=== PATIENT | male | born 1950 | race Caucasian/White ===

== ENCOUNTER 2016-12-21 16:28 | Emergency (ER) | payer OTHER ==
[~2016-12-21] VITALS: Ht 182.9 cm; Wt 167.0 kg
[~2016-12-21 16:28] MED LIST: AMLO5 PO; ATOR80TA PO; Hydrocodone/Acetaminophen PO; METF500 PO; METO50TA PO; PROZ20CA11 PO; TAMS0.4C67 PO
[2016-12-21 16:37] VITALS: BP 151/82; PULSE 101; RESP 16; TEMP 98.8; O2SAT 95
[2016-12-21] MEDS ORDERED: METO-426 PO (17:20)
[2016-12-21] MEDS ORDERED: TAMS5CAP PO (17:20)
[2016-12-21] MEDS ORDERED: FLUO1TAB3 PO (17:20)
[2016-12-21] MEDS ORDERED: ATOR1TAB18 PO (17:20)
[2016-12-21] MEDS ORDERED: ASPI81CH CHEW (17:20)
[2016-12-21] MEDS ORDERED: AMLO10TA2 PO (17:20)
[2016-12-21] MEDS ORDERED: OXYC1CAP PO (17:21)
[2016-12-21] MEDS ORDERED: CEPH-459 PO (17:36)
[2016-12-21] MEDS ORDERED: BACT800T5 PO (17:36)
--- NOTE | 2016-12-21 17:37 | PD ---
HPI Chief Complaint: Skin Problem Time Seen by Provider: 17:12 Travel History International Travel<30 days: No Contact w/Intl Traveler<30days: No Traveled to known affect area: No History of Present Illness HPI 66-year-old male presents to the emergency department for evaluation of a possible abscess on his right abdomen. He reports the area became tender and red 2-3 days ago. He reports the pain as mild mild, nonradiating, only bothering him when the area is touched. He reports previous abscesses in the past. He denies fevers, chills, nausea, vomiting, abdominal pain. PFSH Past Medical History Narrative Medical Past medical history significant for diabetes, hypertension, dyslipidemia. Arthritis: Yes Asthma: Yes Depression: Yes ("A LITTLE BIT" TAKES PROZAC) Heart Rhythm Problems: Yes (pt states, "irregular rhythm, and fast pulse rate") High Cholesterol: Yes COPD: Yes Diabetes: Yes (diet controlled) Endocrine: Yes Hepatitis: No Hiatal Hernia: No Hypertension: Yes Immune Disorder: No Kidney Stones: No Musculoskeletal: Yes (BACK PAIN) Neurologic: No Psychiatric: No Reproductive: No Respiratory: Yes (COPD, APNEA) Immunizations Current: Yes Migraines: No Pneumonia: Yes Radiation Therapy: No Renal Failure: No Seizures: No Sickle Cell Disease: No Sleep Apnea: Yes Thyroid Disease: No Ulcer: No Past Surgical History Abdominal Surgery: No AICD: No Arteriovenous Shunt: No Cardiac Surgery: No Cholecystectomy: Yes (11/14/15) Ear Surgery: No Endocrine Surgery: No Eye Surgery: Yes (CL[place] GLAUCOMA REPAIR) Genitourinary Surgery: No Gynecologic Surgery: No Insulin Pump: No Joint Replacement: Yes (BILATERAL GREAT TOES ) Oral Surgery: No Pacemaker: No Thoracic Surgery: No Other Surgery: Yes (RIGHT THIGH SURGERY, TOE SURGERY- JANETT GREAT TOE) Social History Alcohol Use: No Tobacco Use: No Substance Use: No Allergies-Medications (Allergen,Severity, Reaction): Coded Allergies: No Known Allergies (Verified , 12/21/16) Reported Meds & Prescriptions Reported Meds & Active Scripts Active Reported Oxycodone (Oxycodone HCl) 5 Mg Cap 5 Mg PO Q8H PRN Flomax (Tamsulosin HCl) 0.4 Mg Cap 0.4 Mg PO BID Metoprolol Tartrate 75 Mg Tab 75 Mg PO BID Aspirin 81 Mg Chew 81 Mg CHEW DAILY Fluoxetine (Fluoxetine HCl) 20 Mg Tab 20 Mg PO DAILY Atorvastatin (Atorvastatin Calcium) 80 Mg Tab 80 Mg PO HS Amlodipine (Amlodipine Besylate) 10 Mg Tab 10 Mg PO DAILY Review of Systems Except as stated in HPI: all other systems reviewed are Neg Physical Exam Narrative GENERAL: Well-nourished, well-developed patient. SKIN: Focused skin assessment warm/dry. 6 x 4 cm area of erythema and slight induration right lower abdomen and skin fold. There is no fluctuance. Area is only mildly tender. HEAD: Normocephalic. EYES: No scleral icterus. No injection or drainage. NECK: Supple, trachea midline. No JVD or lymphadenopathy. CARDIOVASCULAR: Regular rate and rhythm without murmurs, gallops, or rubs. RESPIRATORY: Breath sounds equal bilaterally. No accessory muscle use. GASTROINTESTINAL: Abdomen soft, non-tender. MUSCULOSKELETAL: No cyanosis, or edema. BACK: Nontender without obvious deformity. She sebaceous cyst on back. Data Data Last Documented VS Vital Signs Date Time Temp Pulse Resp B/P Pulse Ox O2 Delivery O2 Flow Rate FiO2 12/21/16 16:37 98.8 101 16 151/82 95 MDM Medical Decision Making Medical Screen Exam Complete: Yes Emergency Medical Condition: Yes Medical Record Reviewed: Yes Differential Diagnosis Abscess, cellulitis, sebaceous cyst. Narrative Course 66-year-old male presents emergency department for evaluation of possible abscess on right abdomen skinfold. He reports the area became red and tender approximately 2-3 days ago. He denies fever or chills. He denies any drainage from the site. On exam the area looks to be possible early abscess versus cellulitis. There is no area of fluctuance. Patient will be put on Bactrim and Keflex. Instructed to apply warm compresses to the area and follow-up with doctor in 1-2 days. Diagnosis Primary Impression: Cellulitis Qualified Code: L03.90 - Cellulitis, unspecified cellulitis site Referrals: Primary Care Physician Scripts Cephalexin (Keflex)250 Mg [id number] Mg PO Q6H #40 CAP Ref 0 Prov:Maggie Spencer 12/21/16 Sulfamethoxazole-Trimethoprim (Bactrim DS)800-160 Mg Tab1 Tab PO BID #20 TAB Prov:Maggie Spencer 12/21/16 Disposition: 01 DISCHARGE HOME Condition: Stable Maggie Spencer December 21, 2016 17:36
== END 2016-12-21 17:45 | disposition home or self-care (01) ==
LOC: PHEFT 16:28
DX: L03.311 Cellulitis of abdominal wall (principal); J44.9 Chronic obstructive pulmonary disease, unspecified; I10 Essential (primary) hypertension; E11.9 Type 2 diabetes mellitus without complications; E78.00 Pure hypercholesterolemia, unspecified; J45.909 Unspecified asthma, uncomplicated; F32.9 Major depressive disorder, single episode, unspecified; M19.90 Unspecified osteoarthritis, unspecified site; Z79.82 Long term (current) use of aspirin
CPT/HCPCS: 99284

== ENCOUNTER 2017-07-13 10:24 | Inpatient (IN) | payer OTHER ==
[~2017-07-13] VITALS: Ht 182.9 cm; Wt 150.6 kg
[~2017-07-13 10:24] MED LIST changes: +AMLO10TA2 PO; -AMLO5 PO; +ASPI-516 CHEW; -ATOR80TA PO; +ATOR80TA45 PO; +FLUO1TAB3 PO; -Hydrocodone/Acetaminophen PO; -METF500 PO; +METO-426 PO; -METO50TA PO; +OXYC1CAP PO; -PROZ20CA11 PO; -TAMS0.4C67 PO; +TAMS5CAP PO
[2017-07-13] MEDS ORDERED: METOPROLOL TARTRATE 25 MG TAB PO PRN (11:15)
[2017-07-13] MEDS ORDERED: LACTATED RINGER'S 1000 ML IV PRN (11:15)
[2017-07-13] MEDS ORDERED: SODIUM CHLORID 0.9% 500 ML IV PRN (11:15)
[2017-07-13] MEDS ORDERED: POVIDONE IODINE 5% (ANTISEPSIS KIT) 4 APPLICATIONS EACH NARE PRN (11:15)
[2017-07-13] MEDS ORDERED: INSULIN HUMAN REGULAR 1,000 UNITS/10 ML VIAL SQ PRN (11:15)
[2017-07-13] MEDS ORDERED: ceFAZolin 2 GM PREMIX 50 ML IV SCH (11:15)
[2017-07-13] MEDS ORDERED: CHLORHEXIDINE GLUCONATE 2 % 1 PACK (2 CLOTHS) TOPICAL PRN (11:15)
[2017-07-13] MEDS ORDERED: TRIMIX SQ (11:27)
[2017-07-13] MEDS ORDERED: LISI10TA3 PO (11:27)
[2017-07-13] MEDS ORDERED: VENL75TA PO (11:27)
[2017-07-13] MEDS ORDERED: LEVEMIR SQ ×2 (11:27)
[2017-07-13 11:39] LABS: BASOPHIL % 0.5 % (0.0-2.0); EOSINOPHIL # 0.1 TH/MM3 (0-0.4); EOSINOPHIL % 1.3 % (0.0-4.0); HEMATOCRIT 30.5 % (39.0-51.0); HEMO FLAGS DIFF FINAL; LYMPH % 29.8 % (9.0-44.0); MEAN CELL VOLUME 80.8 FL (80.0-100.0); MEAN CORPUSCULAR HEMOGLOBIN 26.4 PG (27.0-34.0); MEAN CORPUSCULAR HGB CONC 32.6 % (32.0-36.0); MONO % 10.4 % (0.0-8.0); PLATELET COUNT 266 TH/MM3 (150-450); RED BLOOD COUNT 3.77 MIL/MM3 (4.50-5.90); WHITE BLOOD COUNT 6.9 TH/MM3 (4.0-11.0)
[2017-07-13] MEDS ORDERED: ONDANSETRON HCL 4 MG/2 ML VIAL ONE (11:56)
[2017-07-13] MEDS ORDERED: ONDANSETRON HCL 4 MG/2 ML VIAL IV ONE (12:00)
[2017-07-13] MEDS ORDERED: PROPOFOL 200 MG/20 ML AMP IV ONE (12:00)
[2017-07-13] MEDS ORDERED: LACTATED RINGER'S 1000 ML INJ 2,000 ML IV ONE (12:00)
[2017-07-13] MEDS ORDERED: LIDOCAINE HCL 1% PF 5 ML SYRINGE OTHER ONE (12:00)
[2017-07-13] MEDS ORDERED: METOPROLOL TARTRATE 5 MG/5 ML VIAL IV ONE (12:00)
[2017-07-13] MEDS ORDERED: DEXAMETHASONE SOD PHOS 4 MG/ML VIAL IV ONE (12:00)
[2017-07-13] MEDS ORDERED: ROCURONIUM INJ 50 MG/5 ML SYRINGE IV PUSH ONE (12:00)
[2017-07-13 12:05] LABS: BICARBONATE 24.8 MEQ/L (21.0-32.0); POTASSIUM 3.5 MEQ/L (3.5-5.1)
[2017-07-13] MEDS ORDERED: ONDANSETRON HCL 4 MG/2 ML VIAL IV PUSH ONE (12:45)
--- NOTE | 2017-07-13 14:46 | EKG ---
Date Performed: 07/13/2017 Time Performed: 10:54:01 PTAGE: 67 years EKG: Sinus rhythm LOW QRS VOLTAGE ABNORMAL ECG No significant change from prior electrocardiogram. PREVIOUS TRACING : 09/27/2015 05.43 DOCTOR: Shamir Pederson Interpretating Date/Time 07/13/2017 14:45:35
[2017-07-13] MEDS ORDERED: DEXAMETHASONE SOD PHOS PF 10 MG/ML VIAL ONE (16:49)
[2017-07-13] MEDS ORDERED: ROPIVACAINE 0.5% PF INJ 30 ML VIAL ONE (16:50)
[2017-07-13] MEDS ORDERED: STERILE WATER FOR INJECTION 20 ML VIAL ONE (17:57)
[2017-07-13] MEDS ORDERED: ceFAZolin INJ 1,000 MG VIAL ONE ×2 (17:57→18:10)
[2017-07-13] MEDS ORDERED: ACETAMINOPHEN 1000 MG/100 ML 100 ML IV ONE (18:08)
[2017-07-13] MEDS ORDERED: SUGAMMADEX SODIUM 200 MG/2 ML VIAL IV PUSH ONE ×2 (18:09)
[2017-07-13] MEDS: LACTATED RINGER'S 1000 ML INJ 1,000 ML IV SCH (18:57)
[2017-07-13] MEDS ORDERED: Post-op Orders (for Pharmacy) XX ONE (19:00)
[2017-07-13] MEDS ORDERED: LORazepam 2 MG/ML VIAL IVP PRN (19:00)
[2017-07-13] MEDS ORDERED: ONDANSETRON HCL 4 MG/2 ML VIAL IV PUSH PRN (19:00)
[2017-07-13] MEDS ORDERED: SODIUM CHLORIDE 0.9% FLUSH 10 ML FLUSH IV FLUSH PRN (19:00)
[2017-07-13] MEDS ORDERED: diphenhydrAMINE HCL 50 MG/ML VIAL IV PUSH PRN (19:00)
[2017-07-13] MEDS ORDERED: NALOXONE HCL 0.4 MG/ML AMP IV PUSH PRN ×2 (19:00)
[2017-07-13] MEDS ORDERED: ACETAMINOPHEN/HYDROcodone 325 MG/5 MG TAB PO PRN (19:00)
[2017-07-13] MEDS ORDERED: ACETAMINOPHEN/HYDROcodone 325 MG/7.5 MG TAB PO PRN (19:00)
[2017-07-13] MEDS ORDERED: BENZOCAINE 20% ORAL SPR 60 ML CAN MT PRN (19:00)
[2017-07-13] MEDS ORDERED: DO NOT ADM ANY ANTICOAGULANT DRUGS PRN (19:03)
[2017-07-13] MEDS ORDERED: *morphine SULFATE 8 MG/ML PERIprocedure ONLY ONE ×2 (19:06→19:15)
[2017-07-13] MEDS ORDERED: HYDROmorphone HCL PF 1 MG/ML VIAL ONE (19:23)
[2017-07-13] MEDS: MORPHINE SULFATE 30 MG/30 ML PCA IV SCH (19:45)
[2017-07-13] MEDS ORDERED: ACETAMINOPHEN 1000 MG/100 ML 100 ML IV SCH (20:00)
[2017-07-13] MEDS: metroNIDAZOLE 500 MG INJ 100 ML IV SCH (20:27)
[2017-07-13] MEDS ORDERED: *ONDANSETRON 4 MG VIAL PERIprocedural Use ONLY ONE (20:33)
[2017-07-13] MEDS: SODIUM CHLORIDE 0.9% FLUSH 10 ML FLUSH IV FLUSH SCH (21:00)
[2017-07-13] MEDS: PANTOPRAZOLE SODIUM 40 MG VIAL IV PUSH SCH (21:00)
[2017-07-13 21:30] VITALS: BP 113/58; PULSE 93; RESP 22; TEMP 95.5; O2SAT 99
[2017-07-13] MEDS: PCA - TOTAL MG MORPHINE DELIVERED PER SHIFT SCH (22:00)
[2017-07-14] VITALS: BP 126/62; PULSE 98; RESP 20; TEMP 96.8; O2SAT 99
[2017-07-14] MEDS: ACETAMINOPHEN 1000 MG/100 ML 100 ML IV SCH ×5 (00:24→23:44)
[2017-07-14] MEDS: MORPHINE SULFATE 30 MG/30 ML PCA IV SCH ×2 (01:32→17:12)
[2017-07-14 04:00] VITALS: BP 121/69; PULSE 92; RESP 20; TEMP 96.6; O2SAT 95
[2017-07-14] MEDS: LACTATED RINGER'S 1000 ML INJ 1,000 ML IV SCH ×3 (04:57→23:44)
[2017-07-14] MEDS: metroNIDAZOLE 500 MG INJ 100 ML IV SCH ×2 (05:57→11:31)
[2017-07-14] MEDS: PCA - TOTAL MG MORPHINE DELIVERED PER SHIFT SCH ×3 (05:58→22:00)
[2017-07-14 08:00] VITALS: BP 130/69; PULSE 93; RESP 18; TEMP 96.7; O2SAT 97
[2017-07-14 08:30] LABS: AUTOMATED NEUTROPHIL # 9.5 TH/MM3 (1.8-7.7); HEMATOCRIT 30.4 % (39.0-51.0); HEMO FLAGS DIFF FINAL; LYMPH % 7.2 % (9.0-44.0); LYMPHOCYTE # 0.8 TH/MM3 (1.0-4.8); MEAN CELL VOLUME 80.4 FL (80.0-100.0); MEAN CORPUSCULAR HEMOGLOBIN 26.5 PG (27.0-34.0); MONO % 4.8 % (0.0-8.0); PLATELET COUNT 253 TH/MM3 (150-450); RED BLOOD COUNT 3.78 MIL/MM3 (4.50-5.90); RED CELL DISTRIBUTION WIDTH 16.6 % (11.6-17.2); WHITE BLOOD COUNT 10.7 TH/MM3 (4.0-11.0)
[2017-07-14] MEDS ORDERED: PNEUMOCOCCAL POLYVALENT INJ 25 MCG/0.5 ML SYR IM ONE (09:00)
[2017-07-14] MEDS: SODIUM CHLORIDE 0.9% FLUSH 10 ML FLUSH IV FLUSH SCH ×2 (09:00→20:33)
[2017-07-14 09:10] LABS: BICARBONATE 26.6 MEQ/L (21.0-32.0)
[2017-07-14 12:00] VITALS: BP 127/95; PULSE 87; RESP 18; TEMP 97.2; O2SAT 98
--- NOTE | 2017-07-14 13:23 | HHI.PR ---
Subjective Subjective Notes Resting in bed "When can this tube in my nose come out? It's messing with my CPAP mask." Objective Vitals/I&O Vital Signs Date Time Temp Pulse Resp B/P (MAP) Pulse Ox O2 Delivery O2 Flow Rate FiO2 07/14/17 12:00 97.2 87 18 127/95 (106) 98 07/13/17 20:05 Nasal Cannula 2 Labs Laboratory Tests Test 07/14/17 07:32 07/14/17 07:52 White Blood Count 10.7 Red Blood Count 3.78 Hemoglobin 10.0 Hematocrit 30.4 Mean Corpuscular Volume 80.4 Mean Corpuscular Hemoglobin 26.5 Mean Corpuscular Hemoglobin Concent 33.0 Red Cell Distribution Width 16.6 Platelet Count 253 Mean Platelet Volume 7.7 Neutrophils (%) (Auto) 88.0 Lymphocytes (%) (Auto) 7.2 Monocytes (%) (Auto) 4.8 Eosinophils (%) (Auto) 0.0 Basophils (%) (Auto) 0.0 Neutrophils # (Auto) 9.5 Lymphocytes # (Auto) 0.8 Monocytes # (Auto) 0.5 Eosinophils # (Auto) 0.0 Basophils # (Auto) 0.0 CBC Comment DIFF FINAL Differential Comment Blood Urea Nitrogen 15 Creatinine 1.40 Random Glucose 244 Calcium Level 8.1 Sodium Level 138 Potassium Level 4.0 Chloride Level 103 Carbon Dioxide Level 26.6 Anion Gap 8 Estimat Glomerular Filtration Rate 51 Date/Time Source Procedure Growth Status 07/13/17 17:55 Wound Other Gram Stain Pending Received 07/13/17 17:55 Wound Other Wound Culture Pending Received Cardiovascular: Regular Lungs: Clear Abdomen: Other (midline incision with dressing c/d/i; NGT to LIWS; abdomen soft ; no bowel sounds ) Extremities: No edema A/P Assessment and Plan 67 year old male POD1 pancreatic necrectomy; internal drainage of pseudocyst -NPO; okay for ice chips -NGT to LIWS -Will DC NGT when bowel function return -ACETALDEHYDE CONVERTER OPERATOR for pain control + Ofirmev -IVF -OOB and mobilize Attending Statement pain controlled postop await bowel function abdominal exam, stable postop exam with incisional pain, no peritonitis or rebound tenderness The exam, history, and the medical decision-making described in the above note were completed with the assistance of the mid-level provider. I reviewed and agree with the findings presented. I attest that I had a [id number] encounter with the patient on the same day, and personally performed and documented my assessment and findings in the medical record. Denisa Jean-Baptiste Jul 14, 2017 13:23 Kevin Rodriguez MD Jul 17, 2017 08:12
--- NOTE | 2017-07-14 14:58 | PD.CONS ---
[facility] Request[facility] By Kevin UREÑA Reason for Consult Medical management Primary Care Physician [facility] Diagnoses: History of Present Illness Patient is a 67-year-old gentleman. Who underwent a pancreatic NECRECTOMY and internal drainage of a pseudocyst by surgery yesterday We have been asked to consult regarding medical management Past medical history is significant for hypertension, diabetes, hypercholesterolemia, checked of sleep apnea on BiPAP, obesity, as well as diabetes and anxiety and depression. We will help monitor and help with his medical management WHILE here in the hospital, patient follows up at the [place] [facility] Review of Systems Constitutional: DENIES: Diaphoretic episodes, Fatigue, Fever, Weight gain, Weight loss, Chills, Dizziness, Change in appetite Endocrine: DENIES: Heat/cold intolerance, Polydipsia, Polyuria, Polyphagia Eyes: DENIES: Blurred vision, Diplopia, Eye inflammation, Eye pain, Vision loss Ears, nose, mouth, throat: DENIES: Tinnitus, Hearing loss, Vertigo Respiratory: COMPLAINS OF: Snoring, DENIES: Apneas, Cough, Wheezing, Hemoptysis , Sputum production, Shortness of breath Cardiovascular: DENIES: Chest pain, Palpitations, Syncope, Dyspnea on Exertion , PND, Lower Extremity Edema Gastrointestinal: DENIES: Abdominal pain, Black stools, Bloody stools, Constipation, Diarrhea Musculoskeletal: COMPLAINS OF: Joint pain, Back pain, DENIES: Muscle aches, Stiffness, Joint Swelling Integumentary: DENIES: Abnormal pigmentation, Nail changes Hematologic/lymphatic: DENIES: Bruising, Lymphadenopathy Immunologic/allergic: DENIES: Eczema, Urticaria Neurologic: DENIES: Abnormal gait, Headache, Localized weakness, Paresthesias, Seizures, Speech Problems Psychiatric: COMPLAINS OF: Anxiety, Depression, DENIES: Confusion, Mood changes , Hallucinations, Agitation Except as stated in HPI: all other systems reviewed are Neg Past Family Social History Allergies: Coded Allergies: insulin glargine (Verified Allergy, Severe, 07/13/17) Past Medical History Diabetes mellitus insulin-requiring Hypertension Hyperlipidemia Obstructive sleep apnea on BiPAP Anxiety and depression Chronic back pain Glaucoma COPD Past Surgical History Left thigh surgery Bilateral great toe surgery Cholecystectomy Reported Medications Reported Meds & Active Scripts Active Reported [trimix injection] 65 Ml SQ Effexor (Venlafaxine HCl) 75 Mg Tab 75 Mg PO DAILY Lisinopril 10 Mg Tab 10 Mg PO DAILY Levemir Inj (Insulin Detemir) 1,000 unit/ 10 ML Vial 90 Units SQ HS Do not mix with any other Insulin. Levemir Inj (Insulin Detemir) 1,000 unit/ 10 ML Vial 80 Units SQ AC BREAKFAST Do not mix with any other Insulin. Oxycodone (Oxycodone HCl) 5 Mg Cap 5 Mg PO Q8H PRN Flomax (Tamsulosin HCl) 0.4 Mg Cap 0.4 Mg PO BID Metoprolol Tartrate 75 Mg Tab 75 Mg PO BID Aspirin 81 Mg Chew 81 Mg CHEW DAILY Atorvastatin (Atorvastatin Calcium) 80 Mg Tab 80 Mg PO HS Amlodipine (Amlodipine Besylate) 10 Mg Tab 10 Mg PO DAILY Active Ordered Medications Current Medications Cefazolin Sodium/ Dextrose 50 ml @ 100 mls/hr BOILER TENDERS SUPERVISOR IV Last administered on 07/13/17 16:47; Start 07/13/17 at 11:15; Stop 07/16/17 at 11:14 Lactated Ringer's 1,000 ml @ 30 mls/hr Q24H PRN IV SEE LABEL COMMENTS Last administered on 07/13/17 11:30; Start 07/13/17 at 11:15; Stop 07/13/17 at 19 :31; Status DC Sodium Chloride 500 ml @ 30 mls/hr [id number] PRN IV SEE LABEL COMMENTS; Start at 11:15; Stop 07/13/17 at 19:31; Status DC Metoprolol Tartrate (Lopressor) 25 mg BOILER TENDERS SUPERVISOR PRN PO SEE LABEL COMMENTS; Start 07/13/17 at 11:15; Stop 07/16/17 at 11:14 Povidone Iodine (Betadine 5% Antisepsis Kit) 1 applic BOILER TENDERS SUPERVISOR PRN EACH NARE SEE LABEL COMMENTS Last administered on 07/13/17 11:30; Start 07/13/17 at 11: 15; Stop 07/16/17 at 11:14 Chlorhexidine Gluconate (Chlorhexidine 2% Cloth) 3 pack BOILER TENDERS SUPERVISOR PRN TOPICAL SEE LABEL COMMENTS Last administered on 07/13/17 11:15; Start 07/13/17 at 11: 15; Stop 07/16/17 at 11:14 Insulin Human Regular (NovoLIN R INJ) See Protocol Table ... BOILER TENDERS SUPERVISOR PRN SQ SEE PROTOCOL TABLE; Start 07/13/17 at 11:15; Stop 07/16/17 at 11:14; Status Cancel Ondansetron HCl (Zofran Inj) 4 mg STK-MED ONCE .ROUTE Last administered on 12:05; Start 07/13/17 at 11:56; Stop 07/13/17 at 11:57; Status DC Ondansetron HCl (Zofran Inj) 4 mg NOW ONCE IV PUSH Last administered on 12:24; Start 07/13/17 at 12:45; Stop 07/13/17 at 12:46; Status DC Dexamethasone Sodium Phosphate (Decadron Pf Inj) 10 mg STK-MED ONCE .ROUTE ; Start 07/13/17 at 16:49; Stop 07/13/17 at 16:50; Status DC Ropivacaine (Naropin 0.5% Pf Inj) 60 ml STK-MED ONCE .ROUTE ; Start 07/13/17 at 16:50; Stop 07/13/17 at 16:51; Status DC Sterile Water (Sterile Water For Injection) 20 ml STK-MED ONCE .ROUTE Last administered on 07/13/17 18:00; Start 07/13/17 at 17:57; Stop 07/13/17 at 17 :58; Status DC Cefazolin Sodium (Ancef Inj) 1,000 mg STK-MED ONCE .ROUTE Last administered on 07/13/17 18:00; Start 07/13/17 at 17:57; Stop 07/13/17 at 17:58; Status DC Acetaminophen 100 ml @ As Directed STK-MED ONCE IV ; Start 07/13/17 at 18:08; Stop 07/13/17 at 18:09; Status DC Sugammadex Sodium (Bridion Inj) 400 mg STK-MED ONCE IV PUSH ; Start 07/13/17 at 18:09; Stop 07/13/17 at 18:10; Status DC Cefazolin Sodium (Ancef Inj) 1,000 mg STK-MED ONCE .ROUTE Last administered on 07/13/17 18:15; Start 07/13/17 at 18:10; Stop 07/13/17 at 18:11; Status DC Lactated Ringer's 1,000 ml @ 100 mls/hr Q10H IV Last administered on 10:15; Start 07/13/17 at 18:57 Sodium Chloride (NS Flush) 2 ml UNSCH PRN IV FLUSH FLUSH AFTER USING IV ACCESS ; Start 07/13/17 at 19:00 Sodium Chloride (NS Flush) 2 ml BID IV FLUSH Last administered on 07/13/17 21 :00; Start 07/13/17 at 21:00 Ondansetron HCl (Zofran Inj) 4 mg Q6H PRN IV PUSH NAUSEA OR VOMITING; Start at 19:00 Pantoprazole Sodium (Protonix Inj) 40 mg Q24H IV PUSH Last administered on 21:00; Start 07/13/17 at 21:00 Diphenhydramine HCl (Benadryl Inj) 25 mg Q6H PRN IV PUSH ITCHING; Start at 19:00 Benzocaine (Hurricaine 20% Oral Spr) 1 spray UNSCH X1 PRN MT SEE LABEL COMMENTS ; Start 07/13/17 at 19:00; Stop 07/23/17 at 18:59 Lorazepam (Ativan Inj) 0.5 mg Q4H PRN IVP ANXIETY; Start 07/13/17 at 19:00 Cefazolin Sodium 1000 mg/Sodium Chloride 100 ml @ 200 mls/hr Q8H IV Last administered on 07/14/17 10:15; Start 07/14/17 at 00:00; Stop 07/14/17 at 16 :29 Metronidazole 100 ml @ 200 mls/hr Q8H IV Last administered on 07/14/17 11:31 ; Start 07/13/17 at 20:00; Stop 07/14/17 at 12:29; Status DC Miscellaneous Information (Post-op Orders (for Pharmacy)) STAT ONCE XX ; Start 07/13/17 at 19:00; Stop 07/13/17 at 19:38; Status DC Acetaminophen/ Hydrocodone Bitart ([place] 5-325 Mg) 1 tab Q4H PRN PO PAIN SCALE 3 TO 5; Start 07/13/17 at 19:00 Acetaminophen/ Hydrocodone Bitart ([place] 7.5-325 Mg) 1 tab Q4H PRN PO PAIN SCALE 6 TO 10; Start 07/13/17 at 19:00 Acetaminophen 100 ml @ 400 mls/hr Q6H IV ; Start 07/13/17 at 20:00; Stop at 20:24; Status DC Naloxone HCl (Narcan Inj) 0.4 mg UNSCH PRN IV PUSH SEE LABEL COMMENTS; Start 07/13/17 at 19:00 Enoxaparin Sodium (Lovenox Inj) 40 mg Q24H SQ ; Start 07/14/17 at 18:00 Naloxone HCl (Narcan Inj) 0.4 mg UNSCH PRN IV PUSH RESPIRATORY RATE LESS THAN 10; Start 07/13/17 at 19:00 Morphine Sulfate (Morphine 1 Mg/ ml LAP WELDER) 30 mg UNSCH IV Last administered on 01:32; Start 07/13/17 at 19:00 LAP WELDER Dosage Infused (Pha) 1 Q8HR .XX Last administered on 07/14/17 05:58; Start 07/13/17 at 22:00 Morphine Sulfate (*morphine INJ PERIprocedure ONLY) 8 mg STK-MED ONCE .ROUTE Last administered on 07/13/17 19:06; Start 07/13/17 at 19:06; Stop 07/13/17 at 19:07; Status DC Morphine Sulfate (*morphine INJ PERIprocedure ONLY) 8 mg STK-MED ONCE .ROUTE Last administered on 07/13/17 19:16; Start 07/13/17 at 19:15; Stop 07/13/17 at 19:16; Status DC Hydromorphone HCl (Dilaudid Pf Inj) 1 mg STK-MED ONCE .ROUTE Last administered on 07/13/17 19:25; Start 07/13/17 at 19:23; Stop 07/13/17 at 19:24; Status DC Miscellaneous Information ALL NURSING DEPARTME... UNSCH PRN .XX SEE LABEL COMMENTS; Start 07/13/17 at 19:03; Stop 07/14/17 at 19:02 Acetaminophen 100 ml @ 400 mls/hr Q6H IV Last administered on 07/14/17 12:20 ; Start 07/14/17 at 00:00; Stop 07/15/17 at 18:14 Ondansetron HCl (*ZOFRAN INJ PERIprocedural ONLY) 4 mg STK-MED ONCE .ROUTE Last administered on 12/20/17at 20:33; Start 07/13/17 at 20:33; Stop 07/13/17 at 20:34; Status DC Pneumococcal Polyvalent Vaccine (Pneumovax-23 Inj) 25 mcg ONCE ONCE IM ; Start 07/14/17 at 09:00; Stop 07/14/17 at 09:01; Status DC Family History Probable tobacco and hypertension and diabetes Social History History of tobacco Denies any alcohol or illicits Physical Exam Vital Signs Vital Signs Date Time Temp Pulse Resp B/P (MAP) Pulse Ox O2 Delivery O2 Flow Rate FiO2 07/14/17 12:00 97.2 87 18 127/95 (106) 98 07/14/17 08:00 96.7 93 18 130/69 (89) 97 07/14/17 05:58 20 07/14/17 04:00 96.6 92 20 121/69 (86) 95 07/14/17 01:32 20 07/14/17 00:00 96.8 98 20 126/62 (83) 99 07/13/17 22:00 20 07/13/17 21:30 95.5 93 22 113/58 (76) 99 07/13/17 20:05 96.4 94 12 96 Nasal Cannula 2 07/13/17 20:00 90 12 113/58 (76) 99 Nasal Cannula 4 07/13/17 19:45 14 07/13/17 19:45 91 14 112/59 (76) 100 Nasal Cannula 4 07/13/17 19:30 90 16 126/59 (81) 99 Nasal Cannula 4 07/13/17 19:15 91 20 126/62 (83) 99 Nasal Cannula 4 07/13/17 19:00 94 17 149/69 (95) 100 Simple Mask 15 07/13/17 18:57 97.9 96 20 158/72 (100) 100 Simple Mask 15 Physical Exam GENERAL: This is a well-nourished, well-developed patient, in no apparent distress. SKIN: No rashes, ecchymoses or lesions. Cool and dry. HEAD: Atraumatic. Normocephalic. No temporal or scalp tenderness. EYES: Pupils equal round and reactive. Extraocular motions intact. No scleral icterus. No injection or drainage. ENT: Nose without bleeding, purulent drainage or septal hematoma. Throat without erythema, tonsillar hypertrophy or exudate. Uvula midline. Airway patent. NG tube in place NECK: Trachea midline. No JVD or lymphadenopathy. Supple, nontender, no meningeal signs. CARDIOVASCULAR: Regular rate and rhythm without murmurs, gallops, or rubs. S1 and S2 no S3 or S4 RESPIRATORY: Clear to auscultation. Breath sounds equal bilaterally. No wheezes , rales, or rhonchi. GASTROINTESTINAL: Abdomen soft, moderate tenderness, nondistended. No hepato- splenomegaly, or palpable masses. No guarding. Hypoactive bowel sounds with midline incision with left-sided drain in place MUSCULOSKELETAL: Extremities without clubbing, cyanosis, or edema. No joint tenderness, effusion, or edema noted. No calf tenderness. Negative Homans sign bilaterally. NEUROLOGICAL: Awake and alert. Cranial nerves II through XII intact. Motor and sensory grossly within normal limits. Five out of 5 muscle strength in all muscle groups. Normal speech. Insight and judgment is good Mood and behavior is appropriate Laboratory Laboratory Tests Test 07/14/17 07:32 07/14/17 07:52 White Blood Count 10.7 Red Blood Count 3.78 Hemoglobin 10.0 Hematocrit 30.4 Mean Corpuscular Volume 80.4 Mean Corpuscular Hemoglobin 26.5 Mean Corpuscular Hemoglobin Concent 33.0 Red Cell Distribution Width 16.6 Platelet Count 253 Mean Platelet Volume 7.7 Neutrophils (%) (Auto) 88.0 Lymphocytes (%) (Auto) 7.2 Monocytes (%) (Auto) 4.8 Eosinophils (%) (Auto) 0.0 Basophils (%) (Auto) 0.0 Neutrophils # (Auto) 9.5 Lymphocytes # (Auto) 0.8 Monocytes # (Auto) 0.5 Eosinophils # (Auto) 0.0 Basophils # (Auto) 0.0 CBC Comment DIFF FINAL Differential Comment Blood Urea Nitrogen 15 Creatinine 1.40 Random Glucose 244 Calcium Level 8.1 Sodium Level 138 Potassium Level 4.0 Chloride Level 103 Carbon Dioxide Level 26.6 Anion Gap 8 Estimat Glomerular Filtration Rate 51 Date/Time Source Procedure Growth Status 07/13/17 17:55 Wound Other Gram Stain Pending Received 07/13/17 17:55 Wound Other Wound Culture Pending Received Result Diagram: 07/14/17 0732 07/14/17 0752 Assessment and Plan Assessment and Plan SP PANCREATIC NECRECTOMY WITH INTERNAL DRAINAGE OF PSUEDOCYST WILL DEFER TO SURGERY POD #1 PAIN control per surgery HYPERTENSION- RESUME HOME MEDS DM SLIDING SCALE COVERAGE - WILL NEED TO RESTART LEVEMIR ONCE EATING HYPERLIPIDEMIA RESTART HOME MEDS ANXIETY AND DEPRESSION- RESTART HOME MEDS [place]- RESUME HOME BIPAP OBESITY- WEIGHT LOSS RECOMMENDED BPH- FLOMAX RENAL INSUFFICIENCY- HOLD ACEI AM LABS DW RN AND PT Code Status FULL CODE Discussed Condition With RN AND PATIENT Trace Cormier DO Jul 14, 2017 14:58
[2017-07-14] MEDS ORDERED: DEXTROSE 50% IN WATER 50 ML VIAL(D50) IV PUSH PRN (15:00)
[2017-07-14] MEDS ORDERED: GLUCAGON 1 MG/ML VIAL OTHER PRN (15:00)
[2017-07-14 16:00] VITALS: BP 142/80; PULSE 68; RESP 17; TEMP 96.7; O2SAT 98
[2017-07-14] MEDS: VENLAFAXINE HCL XR 75 MG CAP PO SCH (17:20)
[2017-07-14] MEDS: ENOXAPARIN SODIUM 40 MG/0.4 ML SYRINGE SQ SCH (17:20)
[2017-07-14] MEDS: INSULIN ASPART SUPPLEMENTAL SCALE SQ SCH ×2 (18:27→20:32)
[2017-07-14 20:16] VITALS: BP 131/69; PULSE 93; RESP 19; TEMP 97.5
[2017-07-14] MEDS: TAMSULOSIN HCL 0.4 MG CAP PO SCH (20:21)
[2017-07-14] MEDS: ATORVASTATIN 80 MG TAB PO SCH (20:22)
[2017-07-14] MEDS: METOPROLOL TARTRATE 25 MG TAB PO SCH (20:22)
[2017-07-14] MEDS: PANTOPRAZOLE SODIUM 40 MG VIAL IV PUSH SCH (20:32)
[2017-07-15] VITALS: BP 137/78; PULSE 80; RESP 20; TEMP 96.4; O2SAT 92
[2017-07-15 04:00] VITALS: BP 124/60; PULSE 74; RESP 20; TEMP 95.8; O2SAT 92
[2017-07-15] MEDS: ACETAMINOPHEN 1000 MG/100 ML 100 ML IV SCH ×3 (05:28→17:14)
[2017-07-15] MEDS: PCA - TOTAL MG MORPHINE DELIVERED PER SHIFT SCH ×3 (05:33→22:00)
[2017-07-15 08:00] VITALS: BP 135/73; PULSE 76; RESP 17; TEMP 96.3; O2SAT 93
[2017-07-15] MEDS: SODIUM CHLORIDE 0.9% FLUSH 10 ML FLUSH IV FLUSH SCH ×2 (09:00→21:53)
[2017-07-15] MEDS: INSULIN ASPART SUPPLEMENTAL SCALE SQ SCH ×4 (09:24→21:00)
[2017-07-15] MEDS: LACTATED RINGER'S 1000 ML INJ 1,000 ML IV SCH ×2 (09:25→17:15)
[2017-07-15] MEDS: TAMSULOSIN HCL 0.4 MG CAP PO SCH ×2 (09:25→21:51)
[2017-07-15] MEDS: METOPROLOL TARTRATE 25 MG TAB PO SCH ×2 (09:25→21:50)
[2017-07-15] MEDS: VENLAFAXINE HCL XR 75 MG CAP PO SCH (09:25)
--- NOTE | 2017-07-15 09:35 | HHI.PR ---
Subjective Subjective Notes Getting ready to work with PT Hungry Happy NGT is out Objective Vitals/I&O Vital Signs Date Time Temp Pulse Resp B/P (MAP) Pulse Ox O2 Delivery O2 Flow Rate FiO2 07/15/17 08:00 96.3 76 17 135/73 (93) 93 07/13/17 20:05 Nasal Cannula 2 Labs Date/Time Source Procedure Growth Status 07/13/17 17:55 Wound Other Gram Stain - Final Resulted 07/13/17 17:55 Wound Other Wound Culture Pending Resulted Cardiovascular: Regular Lungs: Clear Abdomen: Other (midline incision---dressing changes--ashleigh c/d/i; obese abdomen but soft and minimally tender ) Extremities: No edema A/P Assessment and Plan 67 year old male POD2 pancreatic necrectomy; internal drainage of pseudocyst -Advance to Full liquids -Wean KARDEX CLERK today; encouraged the use of PRN [place] -DC IVF -Await cultures to transition to PO antibiotics -OOB and mobilize -No home needs anticipated -Plan for DC Tuesday Attending Statement pain controlled postop tolerating PO abdominal exam, stable postop exam with incisional pain, no peritonitis or rebound tenderness The exam, history, and the medical decision-making described in the above note were completed with the assistance of the mid-level provider. I reviewed and agree with the findings presented. I attest that I had a [id number] encounter with the patient on the same day, and personally performed and documented my assessment and findings in the medical record. Denisa Jean-Baptiste Jul 15, 2017 09:35 Kevin Rodriguez MD Jul 17, 2017 08:14
[2017-07-15 12:00] VITALS: BP 116/68; PULSE 77; RESP 18; TEMP 95.5; O2SAT 95
[2017-07-15 12:11] LABS: AUTOMATED NEUTROPHIL # 10.4 TH/MM3 (1.8-7.7); EOSINOPHIL % 0.1 % (0.0-4.0); HEMATOCRIT 28.3 % (39.0-51.0); HEMO FLAGS DIFF FINAL; LYMPH % 16.2 % (9.0-44.0); LYMPHOCYTE # 2.2 TH/MM3 (1.0-4.8); MEAN CELL VOLUME 80.9 FL (80.0-100.0); MEAN CORPUSCULAR HEMOGLOBIN 26.2 PG (27.0-34.0); MEAN CORPUSCULAR HGB CONC 32.4 % (32.0-36.0); MONO % 5.5 % (0.0-8.0); NEUT % 78.2 % (16.0-70.0); PLATELET COUNT 299 TH/MM3 (150-450); RED CELL DISTRIBUTION WIDTH 16.4 % (11.6-17.2); WHITE BLOOD COUNT 13.3 TH/MM3 (4.0-11.0)
[2017-07-15 12:33] LABS: ANION GAP 9 MEQ/L (5-15); AST (GOT) 12 U/L (15-37); BICARBONATE 26.9 MEQ/L (21.0-32.0); BLOOD UREA NITROGEN 17 MG/DL (7-18); CHLORIDE 101 MEQ/L (98-107); GLOMERULAR FILTRATION RATE 59 ML/MIN (>89); MAGNESIUM 1.6 MG/DL (1.5-2.5); POTASSIUM 3.6 MEQ/L (3.5-5.1); SODIUM (NA) 137 MEQ/L (136-145)
[2017-07-15 12:35] LABS: ALT (GPT) 11 U/L (12-78)
--- NOTE | 2017-07-15 12:37 | MP ---
cc: MATEUS UREÑA DATE OF SURGERY 07/13/2017 PREOPERATIVE DIAGNOSES 1. Pancreatic pseudocyst. 2. History of failed endoscopic drainage treatment. POSTOPERATIVE DIAGNOSES 1. Pancreatic pseudocyst. 2. History of failed endoscopic drainage treatment. PROCEDURE Open internal drainage of pancreatic pseudocyst and pancreatic necrosectomy. ATTENDING SURGEON MD Michael ASSISTANCE Leonard Escalante MD ANESTHESIA General. BLOOD LOSS 400 cc. FINDINGS A pancreatic pseudocyst with a large amount of debris consistent with necrotic peripancreatic fat and pancreatic parenchyma with slight improvement over the imaging and size. INDICATIONS FOR PROCEDURE The patient is a 67-year-old male who developed a pancreatic pseudocyst after severe pancreatitis due to gallstones. The patient had previously undergone endoscopic drainage of the pseudocyst; however, due to the large amount of solid debris this was unsuccessful and was thought to likely be due to some necrotic area of pancreatic parenchyma causing solid debris in the pseudocyst. The patient was referred to Surgery. After discussion with the patient and his about the treatment options including open internal drainage of the pancreatic pseudocyst through the gastric wall and debridement of the pseudocyst. We discussed the risks, benefits and alternatives and they agreed to undergo the procedure. PROCEDURE The patient was taken to the operating, placed in the supine position, placed under general endotracheal anesthesia. The patient's abdomen was shaved, prepped and draped in the usual sterile fashion. Time-out was performed. We made an upper midline incision approximately 12 cm long below the xiphoid to access the upper abdomen. This was done with the 10 blade scalpel, using the Bovie electrocautery to dissected the subcutaneous tissue and open the midline fascia for the full length of the wound. After placing an Aaron wound retractor we were then able to identify the stomach. This was pulled down into our field. We could open the lesser sac and we could identify the stomach as was it was stuck to the pseudocyst which was easily palpable behind the stomach. We then made a gastrotomy with the Bovie electrocautery in line with the bowel into the body of stomach. We were able to place some stay sutures of hold this open and explored the stomach. There was no evidence of any pathology at this time. We did palpate the pseudocyst through the posterior wall of the stomach again at the distal body/proximal antrum area. We then used a spinal needle and accessed the pseudocyst easily through the posterior wall of the stomach. We used this as a guide to excise an area approximately 2 cm x 2 cm, full gastric thickness wall as well as the anterior wall of the pseudocyst of. This was done with the Bovie electrocautery without difficulty. We then were encountered with a large amount of purulent material entering from the pseudocyst. We used suction as well as irrigation to suction irrigate out this purulent material after we had sent a culture. We then delicately debrided all the solid material in the pseudocyst, essentially appeared to be the pancreatic cavity as multiple areas of pancreatic type tissue was debrided through this hole. Again, this was done with the DeBakeys as well as suction and irrigation as well as with a sponge stick. We able to palpate the cavity with our finger. Once we had completely debrided all solid material, there was a pseudocyst cavity which again had no evidence of necrotic tissue or bleeding or rupture. We turned our attention towards completion. We did use two running 2-0 PDS sutures to suture the posterior stomach to the cyst wall to reinforce the adhesion that was already in place and to keep our internal drainage open and to facilitate and ensure good hemostasis at the cut edges. Again at this point in time we had excellent drainage and turned our attention towards completion. We closed our anterior gastrotomy with a two fires of a green load on the GI75 linear stapler cutter. The staple lines were intact with no bleeding and no evidence of any leak. We used an NG tube in good position in the body. We placed a 10-Thai round drain at the staple line of the stomach and brought this out through a separate stab incision in the left upper quadrant, sutured the drain in place with nylon suture. We closed the midline fascia with a #1 looped PDS suture. We closed the skin with ashleigh and a sterile dressing was applied. The patient tolerated the procedure well, no apparent complications. All counts were correct and I was prepped and scrubbed for the entire procedure. The patient was taken to the PACU in stable condition. MD CHARITY Theodore/BREE /7:07 PM /12:05 PM
[2017-07-15 12:44] LABS: ALKALINE PHOSPHATASE 79 U/L (45-117); FREE T4 1.18 NG/DL (0.76-1.46); TOTAL BILIRUBIN ADULT 0.5 MG/DL (0.2-1.0)
--- NOTE | 2017-07-15 14:25 | HHI.PR ---
Subjective Remarks Patient reported pain 10 out of 10 worsening with movement no nausea or vomiting Afebrile Objective Vitals Vital Signs Date Time Temp Pulse Resp B/P (MAP) Pulse Ox O2 Delivery O2 Flow Rate FiO2 07/15/17 12:00 95.5 77 18 116/68 (84) 95 07/15/17 08:00 96.3 76 17 135/73 (93) 93 07/15/17 05:33 18 07/15/17 04:00 95.8 74 20 124/60 (81) 92 07/15/17 00:00 96.4 80 20 137/78 (97) 92 07/14/17 22:00 20 07/14/17 20:16 97.5 93 19 131/69 (89) 07/14/17 17:12 20 07/14/17 17:10 20 07/14/17 16:00 96.7 68 17 142/80 (100) 98 I/O 07/14/17 07/14/17 07/14/17 07/15/17 07/15/17 07/15/17 07:00 15:00 23:00 07:00 15:00 23:00 Intake Total 0 ml 100 ml 120 ml 1580 ml 100 ml Output Total 500 ml 250 ml 550 ml 1450 ml 200 ml Balance -500 ml -150 ml -430 ml 130 ml -100 ml Intake Oral 0 ml 120 ml 480 ml IV Total 100 ml 1100 ml 100 ml Output Urine Total 500 ml 250 ml 550 ml 1450 ml Drainage Total 200 ml # Bowel Movements 0 0 Result Diagram: 07/15/17 1100 07/15/17 1100 Objective Remarks GENERAL: This is a well-nourished, well-developed patient, in no apparent distress. SKIN: No rashes, warm and dry HEAD: Atraumatic. Normocephalic. EYES: Pupils equal round and reactive. Extraocular motions intact. No scleral icterus. ENT: Nose without bleeding, or drainage, Airway patent. NECK: Trachea midline. Supple CARDIOVASCULAR: Regular rate and rhythm without murmurs, gallops, or rubs. RESPIRATORY: Fair air entry bilaterally. No wheezes, rales, or rhonchi. GASTROINTESTINAL: Abdomen soft, surgical fashion looks dry and clean MUSCULOSKELETAL: Extremities without clubbing, cyanosis, or edema. Pedal pulses appreciated NEUROLOGICAL: Awake and alert. Moves all extremity. Normal speech.no focal neurological deficit A/P Assessment and Plan Pancreatic necrotizing status post surgery status post PANCREATIC NECRECTOMY WITH INTERNAL DRAINAGE OF PSUEDOCYST Hypertension Diabetes mellitus type 2 Hyperlipidemia Anxiety Obesity BPH DVT prophylaxis Recommendation Surgery following for postop care plan for discharge on Tuesday Continue home meds for hypertension diabetes hyperlipidemia, as well as anxiety, Continue Lipitor, Lopressor, Flomax, Norvasc will add Vasotec as needed Accu-Chek with ISS, diabetic diet when okay with surgery Lovenox for DVT prophylaxis Paulino Cerda MD Jul 15, 2017 14:25
[2017-07-15 14:54] LABS: HEMOGLOBIN A1a 1.5 %; HEMOGLOBIN A1b 2.7 %; HEMOGLOBIN Ao 77.8 %; HEMOGLOBIN LA1C 2.9 %; HEMOGLOBIN P3 5.2 %
[2017-07-15 16:00] VITALS: BP 106/60; PULSE 73; RESP 16; TEMP 96.2; O2SAT 98
[2017-07-15] MEDS: ENOXAPARIN SODIUM 40 MG/0.4 ML SYRINGE SQ SCH (17:14)
[2017-07-15] MEDS ORDERED: AUGM875T3 PO (17:54)
[2017-07-15 20:00] VITALS: BP 125/60; PULSE 88; RESP 18; TEMP 97.5; O2SAT 95
[2017-07-15] MEDS: PANTOPRAZOLE SODIUM 40 MG VIAL IV PUSH SCH (21:49)
[2017-07-15] MEDS: ATORVASTATIN 80 MG TAB PO SCH (21:51)
[2017-07-15] MEDS: AMOXICILLIN/CLAVULANATE K 875 MG TAB PO SCH (22:23)
[2017-07-15] MEDS: MORPHINE SULFATE 30 MG/30 ML PCA IV SCH (22:30)
[2017-07-16] VITALS: BP 135/69; PULSE 73; RESP 18; TEMP 98.5; O2SAT 95
[2017-07-16 04:00] VITALS: BP 139/66; PULSE 77; RESP 18; TEMP 96.2; O2SAT 95
[2017-07-16] MEDS: LACTATED RINGER'S 1000 ML INJ 1,000 ML IV SCH ×3 (04:45→23:00)
[2017-07-16] MEDS: PCA - TOTAL MG MORPHINE DELIVERED PER SHIFT SCH ×3 (06:00→20:16)
[2017-07-16 08:00] VITALS: BP 137/69; PULSE 75; RESP 17; TEMP 96.9; O2SAT 95
--- NOTE | 2017-07-16 08:58 | HHI.PR ---
Subjective Subjective Notes no acute issues, pain controlled, mild nausea Objective Vitals/I&O Vital Signs Date Time Temp Pulse Resp B/P (MAP) Pulse Ox O2 Delivery O2 Flow Rate FiO2 07/16/17 08:00 96.9 75 17 137/69 (91) 95 07/13/17 20:05 Nasal Cannula 2 Labs Laboratory Tests Test 07/15/17 11:00 07/16/17 08:30 White Blood Count 13.3 Red Blood Count 3.50 Hemoglobin 9.2 Hematocrit 28.3 Mean Corpuscular Volume 80.9 Mean Corpuscular Hemoglobin 26.2 Mean Corpuscular Hemoglobin Concent 32.4 Red Cell Distribution Width 16.4 Platelet Count 299 Mean Platelet Volume 7.5 Neutrophils (%) (Auto) 78.2 Lymphocytes (%) (Auto) 16.2 Monocytes (%) (Auto) 5.5 Eosinophils (%) (Auto) 0.1 Basophils (%) (Auto) 0.0 Neutrophils # (Auto) 10.4 Lymphocytes # (Auto) 2.2 Monocytes # (Auto) 0.7 Eosinophils # (Auto) 0.0 Basophils # (Auto) 0.0 CBC Comment DIFF FINAL Differential Comment Blood Urea Nitrogen 17 Creatinine 1.22 Random Glucose 193 Total Protein 6.7 Albumin 1.9 Calcium Level 8.2 Phosphorus Level 2.6 Magnesium Level 1.6 Alkaline Phosphatase 79 Aspartate Amino Transf (AST/SGOT) 12 Alanine Aminotransferase (ALT/SGPT) 11 Total Bilirubin 0.5 Sodium Level 137 Potassium Level 3.6 Chloride Level 101 Carbon Dioxide Level 26.9 Anion Gap 9 Estimat Glomerular Filtration Rate 59 Hemoglobin A1c 9.2 Free Thyroxine 1.18 Thyroid Stimulating Hormone 3rd Gen 4.280 Date/Time Source Procedure Growth Status 07/13/17 17:55 Wound Other Gram Stain - Final Resulted 07/13/17 17:55 Wound Culture - Preliminary Gram Negative Group D Enterococcus Resulted Abdomen: Other (soft incisional tenderness catrina serosang) A/P Assessment and Plan 67 year old male POD2 pancreatic necrectomy; internal drainage of pseudocyst -Advance to Full liquids -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
[2017-07-16 08:59] LABS: AUTOMATED NEUTROPHIL # 5.9 TH/MM3 (1.8-7.7); BASOPHIL % 0.2 % (0.0-2.0); EOSINOPHIL # 0.1 TH/MM3 (0-0.4); EOSINOPHIL % 1.4 % (0.0-4.0); HEMO FLAGS DIFF FINAL; LYMPH % 21.8 % (9.0-44.0); LYMPHOCYTE # 1.9 TH/MM3 (1.0-4.8); MEAN CELL VOLUME 80.7 FL (80.0-100.0); MEAN CORPUSCULAR HEMOGLOBIN 26.2 PG (27.0-34.0); MEAN CORPUSCULAR HGB CONC 32.4 % (32.0-36.0); MONO % 7.2 % (0.0-8.0); NEUT % 69.4 % (16.0-70.0); PLATELET COUNT 217 TH/MM3 (150-450); RED BLOOD COUNT 3.34 MIL/MM3 (4.50-5.90); RED CELL DISTRIBUTION WIDTH 16.3 % (11.6-17.2); WHITE BLOOD COUNT 8.5 TH/MM3 (4.0-11.0)
--- NOTE | 2017-07-16 09:00 | HHI.PR ---
Subjective Subjective Notes tolerating PO Objective Vitals/I&O Vital Signs Date Time Temp Pulse Resp B/P (MAP) Pulse Ox O2 Delivery O2 Flow Rate FiO2 07/16/17 08:00 96.9 75 17 137/69 (91) 95 07/13/17 20:05 Nasal Cannula 2 Labs Laboratory Tests Test 07/15/17 11:00 07/16/17 08:30 White Blood Count 13.3 8.5 Red Blood Count 3.50 3.34 Hemoglobin 9.2 8.7 Hematocrit 28.3 27.0 Mean Corpuscular Volume 80.9 80.7 Mean Corpuscular Hemoglobin 26.2 26.2 Mean Corpuscular Hemoglobin Concent 32.4 32.4 Red Cell Distribution Width 16.4 16.3 Platelet Count 299 217 Mean Platelet Volume 7.5 7.2 Neutrophils (%) (Auto) 78.2 69.4 Lymphocytes (%) (Auto) 16.2 21.8 Monocytes (%) (Auto) 5.5 7.2 Eosinophils (%) (Auto) 0.1 1.4 Basophils (%) (Auto) 0.0 0.2 Neutrophils # (Auto) 10.4 5.9 Lymphocytes # (Auto) 2.2 1.9 Monocytes # (Auto) 0.7 0.6 Eosinophils # (Auto) 0.0 0.1 Basophils # (Auto) 0.0 0.0 CBC Comment DIFF FINAL DIFF FINAL Differential Comment Blood Urea Nitrogen 17 Creatinine 1.22 Random Glucose 193 Total Protein 6.7 Albumin 1.9 Calcium Level 8.2 Phosphorus Level 2.6 Magnesium Level 1.6 Alkaline Phosphatase 79 Aspartate Amino Transf (AST/SGOT) 12 Alanine Aminotransferase (ALT/SGPT) 11 Total Bilirubin 0.5 Sodium Level 137 Potassium Level 3.6 Chloride Level 101 Carbon Dioxide Level 26.9 Anion Gap 9 Estimat Glomerular Filtration Rate 59 Hemoglobin A1c 9.2 Free Thyroxine 1.18 Thyroid Stimulating Hormone 3rd Gen 4.280 Date/Time Source Procedure Growth Status 07/13/17 17:55 Wound Other Gram Stain - Final Resulted 07/13/17 17:55 Wound Culture - Preliminary Gram Negative Group D Enterococcus Resulted Abdomen: Non-distended, Post-op tenderness A/P Assessment and Plan 67yo male s/p internal draining of infected pseudocyst, stable. DC home once tolerating PO, +BM and pain controlled on oral meds Kevin Rodriguez MD Jul 16, 2017 09:00
[2017-07-16 09:20] LABS: BICARBONATE 28.7 MEQ/L (21.0-32.0); POTASSIUM 3.7 MEQ/L (3.5-5.1)
[2017-07-16] MEDS: VENLAFAXINE HCL XR 75 MG CAP PO SCH (09:38)
[2017-07-16] MEDS: METOPROLOL TARTRATE 25 MG TAB PO SCH ×2 (09:39→20:15)
[2017-07-16] MEDS: AMOXICILLIN/CLAVULANATE K 875 MG TAB PO SCH ×2 (09:40→20:15)
[2017-07-16] MEDS: TAMSULOSIN HCL 0.4 MG CAP PO SCH ×2 (09:40→20:15)
[2017-07-16] MEDS: SODIUM CHLORIDE 0.9% FLUSH 10 ML FLUSH IV FLUSH SCH ×2 (09:41→20:14)
[2017-07-16] MEDS: INSULIN ASPART SUPPLEMENTAL SCALE SQ SCH ×4 (09:41→20:16)
[2017-07-16] MEDS ORDERED: MAGNESIUM HYDROXIDE SUSP 30 ML CUP PO PRN (11:45)
[2017-07-16] MEDS ORDERED: DOCUSATE SODIUM 50 MG/SENNA 8.6 MG TAB PO PRN (11:45)
[2017-07-16 12:00] VITALS: BP 130/70; PULSE 74; RESP 18; TEMP 97; O2SAT 96
--- NOTE | 2017-07-16 15:03 | HHI.PR ---
Subjective Remarks Patient reported she ate mashed potato and meatloaf today and she did well with that , Complain of constipation we ordered stool softener Patient afebrile Objective Vitals Vital Signs Date Time Temp Pulse Resp B/P (MAP) Pulse Ox O2 Delivery O2 Flow Rate FiO2 07/16/17 14:00 15 07/16/17 12:00 97.0 74 18 130/70 (90) 96 07/16/17 08:00 96.9 75 17 137/69 (91) 95 07/16/17 06:00 18 07/16/17 04:00 96.2 77 18 139/66 (90) 95 07/16/17 00:00 98.5 73 18 135/69 (91) 95 07/15/17 22:30 18 07/15/17 22:00 18 07/15/17 20:00 97.5 88 18 125/60 (81) 95 07/15/17 16:00 96.2 73 16 106/60 (75) 98 I/O 07/15/17 07/15/17 07/15/17 07/16/17 07/16/17 07/16/17 07:00 15:00 23:00 07:00 15:00 23:00 Intake Total 1580 ml 200 ml 2603.6 ml 1100 ml Output Total 1450 ml 200 ml 1200 ml 660 ml Balance 130 ml 0 ml 1403.6 ml 440 ml Intake Oral 480 ml 1600 ml IV Total 1100 ml 200 ml 1003.6 ml 1100 ml Output Urine Total 1450 ml 1200 ml 650 ml Drainage Total 0 ml 200 ml 10 ml Result Diagram: 07/16/1730 07/16/17 0830 Objective Remarks GENERAL: This is a well-nourished, well-developed patient, in no apparent distress. SKIN: No rashes, warm and dry HEAD: Atraumatic. Normocephalic. EYES: Pupils equal round and reactive. Extraocular motions intact. No scleral icterus. ENT: Nose without bleeding, or drainage, Airway patent. NECK: Trachea midline. Supple CARDIOVASCULAR: Regular rate and rhythm without murmurs, gallops, or rubs. RESPIRATORY: Fair air entry bilaterally. No wheezes, rales, or rhonchi. GASTROINTESTINAL: Abdomen soft, surgical fashion looks dry and clean MUSCULOSKELETAL: Extremities without clubbing, cyanosis, or edema. Pedal pulses appreciated NEUROLOGICAL: Awake and alert. Moves all extremity. Normal speech.no focal neurological deficit A/P Assessment and Plan 07/16: Continue current care we'll follow with surgery, Pancreatic necrotizing status post surgery status post PANCREATIC NECRECTOMY WITH INTERNAL DRAINAGE OF PSUEDOCYST Hypertension Diabetes mellitus type 2 Hyperlipidemia Anxiety Obesity BPH DVT prophylaxis Recommendation Surgery following for postop care plan for discharge on Tuesday Continue home meds for hypertension diabetes hyperlipidemia, as well as anxiety, Continue Lipitor, Lopressor, Flomax, Norvasc will add Vasotec as needed Accu-Chek with ISS, diabetic diet when okay with surgery Lovenox for DVT prophylaxis Paulino Cerda MD Jul 16, 2017 15:03
[2017-07-16 16:00] VITALS: BP 136/65; PULSE 77; RESP 19; TEMP 96.2; O2SAT 95
[2017-07-16] MEDS: ENOXAPARIN SODIUM 40 MG/0.4 ML SYRINGE SQ SCH (17:28)
[2017-07-16 20:00] VITALS: BP 139/63; PULSE 90; RESP 22; TEMP 96.5; O2SAT 94
[2017-07-16] MEDS: ATORVASTATIN 80 MG TAB PO SCH (20:15)
[2017-07-16] MEDS: PANTOPRAZOLE SODIUM 40 MG VIAL IV PUSH SCH (20:15)
[2017-07-17] VITALS: BP 132/64; PULSE 78; RESP 20; TEMP 97; O2SAT 94
[2017-07-17 04:00] VITALS: BP 141/66; PULSE 86; RESP 20; TEMP 97.4; O2SAT 94
[2017-07-17] MEDS: PCA - TOTAL MG MORPHINE DELIVERED PER SHIFT SCH (04:54)
[2017-07-17 08:00] VITALS: BP 132/69; PULSE 86; RESP 18; TEMP 97.4; O2SAT 92
[2017-07-17] MEDS: INSULIN ASPART SUPPLEMENTAL SCALE SQ SCH (08:00)
--- NOTE | 2017-07-17 09:41 | HHI.PR ---
Subjective Subjective Notes pain controlled, tolerating PO Objective Vitals/I&O Vital Signs Date Time Temp Pulse Resp B/P (MAP) Pulse Ox O2 Delivery O2 Flow Rate FiO2 07/17/17 08:00 97.4 86 18 132/69 (90) 92 07/13/17 20:05 Nasal Cannula 2 Labs Date/Time Source Procedure Growth Status 07/13/17 17:55 Wound Other Gram Stain - Final Complete 07/13/17 17:55 Wound Culture - Final Escherichia Coli Enterococcus Faecalis Complete Cardiovascular: Regular Lungs: Clear Abdomen: Non-distended, Post-op tenderness Extremities: No edema, Perfused A/P Assessment and Plan 67yo male s/p internal draining of infected pseudocyst, stable. tolerating PO VERONICA removed DC home on oral abx Kevin Rodriguez MD Jul 17, 2017 09:41
[2017-07-17] MEDS: TAMSULOSIN HCL 0.4 MG CAP PO SCH (09:57)
[2017-07-17] MEDS: METOPROLOL TARTRATE 25 MG TAB PO SCH (09:57)
[2017-07-17] MEDS: AMOXICILLIN/CLAVULANATE K 875 MG TAB PO SCH (09:57)
[2017-07-17] MEDS: VENLAFAXINE HCL XR 75 MG CAP PO SCH (09:57)
[2017-07-17] MEDS: SODIUM CHLORIDE 0.9% FLUSH 10 ML FLUSH IV FLUSH SCH (09:58)
[2017-07-17] MEDS ORDERED: PERC5TAB12 PO (11:47)
[2017-07-17 12:00] VITALS: BP 109/79; PULSE 100; RESP 18; TEMP 96.9; O2SAT 96
== END 2017-07-17 12:55 | disposition home or self-care (01) | DRG 405 ==
LOC: HSDI 10:24 → EDSTATUS 12:30 → N07A 20:43
PROVIDERS: ADMIT Surgery; ATTEND Surgery
PROC: 0FBG0ZZ Excision of Pancreas, Open Approach (ICD-10-PCS; 2017-07-13)
PROC: 0F9G00Z Drainage of Pancreas with Drainage Device, Open Approach (ICD-10-PCS; principal; 2017-07-13 16:45)
DX: K86.3 Pseudocyst of pancreas (principal); K85.82 Other acute pancreatitis with infected necrosis; Z68.42 Body mass index [BMI] 45.0-49.9, adult; J44.9 Chronic obstructive pulmonary disease, unspecified; I10 Essential (primary) hypertension; E11.9 Type 2 diabetes mellitus without complications; E66.9 Obesity, unspecified; G47.33 Obstructive sleep apnea (adult) (pediatric); H40.9 Unspecified glaucoma; N40.0 Benign prostatic hyperplasia without lower urinary tract symptoms; N28.9 Disorder of kidney and ureter, unspecified; K59.00 Constipation, unspecified; E78.5 Hyperlipidemia, unspecified; F32.9 Major depressive disorder, single episode, unspecified; F41.9 Anxiety disorder, unspecified; B95.2 Enterococcus as the cause of diseases classified elsewhere; B96.20 Unspecified Escherichia coli [E. coli] as the cause of diseases classified elsewhere; Z79.4 Long term (current) use of insulin; Z87.891 Personal history of nicotine dependence
CPT/HCPCS: 36430; 80048; 80053; 82948; 83036; 83735; 84100; 84439; 84443; 85025; 86850; 86900; 86901; 86920; 87070; 87077; 87186; 87205; 88305; 88309; 93005; 94150; C9113; J0131; J0690; J1100; J1170; J1650; J1815; J2270; J2405; J2795; J7120; P9016

== ENCOUNTER 2018-05-11 11:05 | Observation (INO) ==
[2018-05-11] MEDS ORDERED: Dextrose 50% in Water 50 ML Vial IV.PUSH PRN ×2 (11:54→15:01)
[2018-05-11] MEDS ORDERED: Sod Chloride 0.9% Inj 1,000 ML IV.SIG ONE (11:54)
--- NOTE | 2018-05-11 11:54 | ED ---
HPI General Chief Complaint: Recheck/Abnormal Lab/Rx Stated Complaint: high blood sugar x today Time Seen by Provider: 05/11/18 11:41 History of Present Illness HPI narrative: [facility] He received a call saying his blood sugar was very high and he should go to the emergency room. Does not feel particularly bad. He does have a bit of generalized weakness and malaise and urinary frequency. Severity of symptoms is mild to moderate. He reports compliance with his insulin. He does not check his blood sugars at home. Duration 3 days. No exacerbating factors. No alleviating factors. Denies fever Related Data Home Medications Medication Instructions Recorded Confirmed aspirin [Aspir-81] 81 mg PO DAILY 05/11/18 05/11/18 atorvastatin 80 mg PO DAILY 05/11/18 05/11/18 insulin aspart U-100 [Novolog 10 unit SUBCUT TID 05/11/18 05/11/18 Flexpen U-100 Insulin] insulin detemir U-100 [Levemir 100 unit SUBCUT BID 05/11/18 05/11/18 U-100 Insulin] lisinopril 10 mg PO DAILY 05/11/18 05/11/18 metoprolol tartrate 75 mg PO BID 05/11/18 05/11/18 tamsulosin 0.4 mg PO BID 05/11/18 05/11/18 venlafaxine 75 mg PO DAILY 05/11/18 05/11/18 Allergies Allergy/AdvReac Type Severity Reaction Status Date / Time insulin glargine Allergy Severe Verified 07/13/17 11:46 Review of Systems ROS: all other systems reviewed are negative FOR[facility]LY [facility] Social History Social History Substance History: No History of Abuse Second Hand Smoke Exposure: Yes Smoking Status: Former smoker How Often Do You Have a Drink Containing Alcohol: Monthly or less Recent Travel in [facility] within the Last 8 Weeks: No Recent Out of Country Travel within the Last 8 Weeks: No Exam Narrative Exam Narrative: GENERAL: Morbidly obese well-developed patient in no apparent distress. SKIN: Focused skin assessment reveals no rash and nodules. Skin is Warm and dry. HEAD: Atraumatic. Normocephalic. EYES: Pupils equal and round. No scleral icterus. No injection or drainage. ENT: No nasal bleeding or discharge. Mucous membranes pink and moist. NECK: Trachea midline. No JVD. CARDIOVASCULAR: Regular rate and rhythm. No murmur appreciated. RESPIRATORY: No accessory muscle use. Clear to auscultation. Breath sounds equal bilaterally. GASTROINTESTINAL: Abdomen soft, non-tender, nondistended. Hepatic and splenic margins not palpable. MUSCULOSKELETAL: No obvious deformities. No clubbing. No cyanosis. No edema. NEUROLOGICAL: Awake and alert. No obvious cranial nerve deficits. Motor grossly within normal limits. Normal speech. PSYCHIATRIC: Appropriate mood and affect; insight and judgment normal. Course Initial Documented Vital Signs Temperature 98.0 F 05/11/18 11:20 Pulse Rate 98 H 05/11/18 11:20 Respiratory Rate 18 05/11/18 11:20 Blood Pressure 140/71 05/11/18 11:20 Pulse Oximetry 95 05/11/18 11:20 Last Documented Vital Signs Temperature 98.0 F 05/11/18 11:20 Pulse Rate 86 05/11/18 13:00 Respiratory Rate 18 05/11/18 13:00 Blood Pressure 142/85 H 05/11/18 13:00 Pulse Oximetry 97 05/11/18 13:00 Medical Decision Making MDM Narrative Medical decision making narrative: This is a 68-year-old insulin-dependent diabetic with hyperglycemia. Accu-Chek is 593. Giving him a liter of saline and some IV regular insulin and will reassess. After 16 units of insulin and a liter of saline his sugar is still 500. ABG shows a pH of 7.3 and his bicarb is 19. These are both low but mildly low. He is not ketotic so technically not DKA. However his diabetes is out of control and I suspect this may lead to DKA in the near future if discharged. He is going to be in observation in the hospital to help control his hyperglycemia. I reviewed with the hospitalist who is in agreement Medical Screen Exam Complete: Yes Emergency Medical Condition: Yes Differential Diagnosis Differential Diagnosis: DKA, hyperglycemia, noncompliance Medical Records Medical records reviewed: Yes I reviewed the patient's medical records. Lab Data Lab results reviewed: Yes I reviewed the patient's lab results. Lab results narrative: Has hyperglycemia and renal insufficiency Result diagrams: 05/11/18 12:00 05/11/18 12:00 Lab Results 05/11/18 05/11/18 05/11/18 Range/Units 11:52 12:00 12:00 CBC w Diff Auto diff final WBC 8.9 (4.0-11.0) th/mm3 RBC 4.66 (4.50-5.90) mil/mm3 Hgb 13.6 (13.0-17.0) gm/dL Hct 40.7 (39.0-51.0) % MCV 87.3 (80.0-100.0) fL MCH 29.1 (27.0-34.0) pg MCHC 33.3 (32.0-36.0) % RDW 14.2 (11.6-17.2) % Plt Count 222 (150-450) th/mm3 MPV 9.0 (7.0-11.0) fL Neut % (Auto) 83.3 H (16.0-70.0) % Lymph % (Auto) 13.4 (9.0-44.0) % [place] % (Auto) 2.1 (0.0-8.0) % Eos % (Auto) 0.8 (0.0-4.0) % Baso % (Auto) 0.4 (0.0-2.0) % Neut # (Auto) 7.4 (1.8-7.7) th/mm3 Lymph # (Auto) 1.2 (1.0-4.8) th/mm3 [place] # (Auto) 0.2 (0.0-0.9) th/mm3 Eos # (Auto) 0.1 (0.0-0.4) th/mm3 Baso # (Auto) 0.0 (0.0-0.2) th/mm3 WBC Differential . Differential Comment . Puncture Site Patient Temperature O2 Saturation (90-100) % ABG pH (7.380-7.420) ABG pCO2 (38-42) mmHg ABG pO2 (61-120) mmHg ABG HCO3 (22-26) mmol/L ABG O2 Content (12.0-20.0) Vol % ABG Base Excess (-2-2) mmol/L ABG Methemoglobin (0-2) % [place] Test Hemoglobin (12.0-16.0) G/DL Carboxyhemoglobin (0-4) % O2 Delivery Device Inspired O2 % Critical Value Sodium 130 L (136-145) meq/L Potassium 5.4 H (3.5-5.1) meq/L Chloride 101 (98-107) meq/L Carbon Dioxide 19.1 L (21.0-32.0) meq/L Anion Gap 10 (5-15) meq/L BUN 41 H (7-18) mg/dL Creatinine 2.10 H (0.60-1.30) mg/dL Estimated GFR 32 L (>89) mL/min POC Glucose 593 H* (68-110) mg/dl Random Glucose 645 H* (74-106) mg/dL Calcium 8.1 L (8.5-10.1) mg/dL Total Bilirubin 0.9 (0.2-1.0) mg/dL AST 24 (15-37) U/L ALT 33 (12-78) U/L Alkaline Phosphatase 182 H (45-117) U/L Total Protein 7.3 (6.4-8.2) g/dL Albumin 3.3 L (3.4-5.0) g/dL Beta-Hydroxybutyric Acd 0.17 (0.00-0.39) mmol/L 05/11/18 05/11/18 Range/Units 12:00 13:04 CBC w Diff WBC (4.0-11.0) th/mm3 RBC (4.50-5.90) mil/mm3 Hgb (13.0-17.0) gm/dL Hct (39.0-51.0) % MCV (80.0-100.0) fL MCH (27.0-34.0) pg MCHC (32.0-36.0) % RDW (11.6-17.2) % Plt Count (150-450) th/mm3 MPV (7.0-11.0) fL Neut % (Auto) (16.0-70.0) % Lymph % (Auto) (9.0-44.0) % [place] % (Auto) (0.0-8.0) % Eos % (Auto) (0.0-4.0) % Baso % (Auto) (0.0-2.0) % Neut # (Auto) (1.8-7.7) th/mm3 Lymph # (Auto) (1.0-4.8) th/mm3 [place] # (Auto) (0.0-0.9) th/mm3 Eos # (Auto) (0.0-0.4) th/mm3 Baso # (Auto) (0.0-0.2) th/mm3 WBC Differential Differential Comment Puncture Site Right radial Patient Temperature 98.6 O2 Saturation 93 (90-100) % ABG pH 7.30 L (7.380-7.420) ABG pCO2 39 (38-42) mmHg ABG pO2 90 (61-120) mmHg ABG HCO3 19 L (22-26) mmol/L ABG O2 Content 17.7 (12.0-20.0) Vol % ABG Base Excess -6.6 L (-2-2) mmol/L ABG Methemoglobin 1.1 (0-2) % [place] Test Present Hemoglobin 13.5 (12.0-16.0) G/DL Carboxyhemoglobin 0.4 (0-4) % O2 Delivery Device Room air Inspired O2 21 % Critical Value No Sodium (136-145) meq/L Potassium (3.5-5.1) meq/L Chloride (98-107) meq/L Carbon Dioxide (21.0-32.0) meq/L Anion Gap (5-15) meq/L BUN (7-18) mg/dL Creatinine (0.60-1.30) mg/dL Estimated GFR (>89) mL/min POC Glucose 499 H* (68-110) mg/dl Random Glucose (74-106) mg/dL Calcium (8.5-10.1) mg/dL Total Bilirubin (0.2-1.0) mg/dL AST (15-37) U/L ALT (12-78) U/L Alkaline Phosphatase (45-117) U/L Total Protein (6.4-8.2) g/dL Albumin (3.4-5.0) g/dL Beta-Hydroxybutyric Acd (0.00-0.39) mmol/L Discharge Plan Discharge Disposition Patient Disposition: 30 Still Patient Discharge Details Diagnosis: Acute hyperglycemia, [place] (acute kidney injury) Physicians Team ED Provider: Wilver Sam Primary Care Provider: [facility],Physician [place] Rxs /Orders / Referrals /Forms Prescriptions: No Action atorvastatin 80 mg Tablet 80 mg PO DAILY RF: 0 venlafaxine 75 mg Capsule,Extended Release 24hr 75 mg PO DAILY RF: 0 aspirin [Aspir-81] 81 mg Tablet,Delayed Release (Dr/Ec) 81 mg PO DAILY RF: 0 tamsulosin 0.4 mg Capsule 0.4 mg PO BID RF: 0 lisinopril 10 mg Tablet 10 mg PO DAILY RF: 0 insulin detemir U-100 [Levemir U-100 Insulin] 100 unit/mL Solution 100 unit SUBCUT BID RF: 0 metoprolol tartrate 75 mg Tablet 75 mg PO BID RF: 0 insulin aspart U-100 [Novolog Flexpen U-100 Insulin] 100 unit/mL Insulin Pen 10 unit SUBCUT TID RF: 0 Discharge Interventions Interventions: Vital Signs Last Done: 05/11/18 13:00 Status ED Status: With Doctor
[2018-05-11 12:09] LABS: ABG Base Excess -6.6 mmol/L (-2-2); ABG PCO2 39 mmHg (38-42); ABG PO2 90 mmHg (61-120)
[2018-05-11 12:15] LABS: Baso % (Auto) 0.4 % (0.0-2.0); Eos # (Auto) 0.1 th/mm3 (0.0-0.4); Eos % (Auto) 0.8 % (0.0-4.0); Hematocrit 40.7 % (39.0-51.0); Hemoglobin 13.6 gm/dL (13.0-17.0); Lymph # (Auto) 1.2 th/mm3 (1.0-4.8); Lymph % (Auto) 13.4 % (9.0-44.0); Mean Corpuscular HGB Conc 33.3 % (32.0-36.0); Mean Corpuscular Hemoglobin 29.1 pg (27.0-34.0); Mean Corpuscular Volume 87.3 fL (80.0-100.0); Mono # (Auto) 0.2 th/mm3 (0.0-0.9); Mono % (Auto) 2.1 % (0.0-8.0); Neut # (Auto) 7.4 th/mm3 (1.8-7.7); Neut % (Auto) 83.3 % (16.0-70.0); Platelet Count 222 th/mm3 (150-450); Red Blood Count 4.66 mil/mm3 (4.50-5.90); Red Cell Distribution Width 14.2 % (11.6-17.2); White Blood Count 8.9 th/mm3 (4.0-11.0)
[2018-05-11 12:29] LABS: Chloride 101 meq/L (98-107); Potassium 5.4 meq/L (3.5-5.1); Sodium 130 meq/L (136-145)
[2018-05-11 12:34] LABS: Albumin 3.3 g/dL (3.4-5.0); Anion Gap 10 meq/L (5-15); Calcium 8.1 mg/dL (8.5-10.1); Carbon Dioxide 19.1 meq/L (21.0-32.0)
[2018-05-11 12:35] LABS: Blood Urea Nitrogen 41 mg/dL (7-18)
[2018-05-11 12:38] LABS: Alanine Aminotransferase 33 U/L (12-78); Aspartate Aminotransferase 24 U/L (15-37); Glomerular Filtration Rate 32 mL/min (>89)
[2018-05-11 12:54] LABS: Alkaline Phosphatase 182 U/L (45-117); Beta Hydroxybutyric Acid 0.17 mmol/L (0.00-0.39); Total Protein 7.3 g/dL (6.4-8.2)
[2018-05-11 12:59] LABS: Glucose,Random 645 mg/dL (74-106)
[2018-05-11] MEDS ORDERED: Acetaminophen 325 MG Tablet PO PRN (13:46)
[2018-05-11] MEDS ORDERED: Bisacodyl 10 MG Supp RECTAL PRN (13:46)
--- NOTE | 2018-05-11 13:49 | P.HP ---
History of Present Illness Primary Care Physician: [facility] Chief Complaint: hyperglycemia History of Present Illness: This is a 68-year-old male patient with a known medical history of type 2 diabetes, obesity and hypertension who presented to the ED with hyperglycemia. Patient states that he had visited his orthopedic surgeon this morning and got a cortisone shot in his knee and after that had visited the [facility] to [facility]er feeder his labwork. [facility] his glucose was greater than 500 and he was advised to come to the ED for evaluation. Upon exam in the ED patient is found to have hyperglycemia, not in DKA, anion gap is closed. Patient is awake and alert. He states he has been feeling in his normal state of health, states he is very compliant with his prescribed insulin and takes Levemir 80 units BID as well as Novolog 10 units before each meal. He says he has gotten away from checking his sugars all the time and is unaware of his recent a1c level. Patient denies any recent illness including fever, chills, headache, nausea, vomiting, ab pain, diarrhea or dysuria. He lives at home alone and able to perform all ADLs per self. He does state he has been rather noncompliant regarding his diabetic diet. - Diagnosis (1) Hyperglycemia Review of Systems All other systems reviewed negative except as stated in HPI PMFSH - History History Provided By: Patient, Medical Record - Medical History Medical History: Medical History (Last Updated 05/11/18 @ 15:08 by Charlene Linares) [place] (acute kidney injury) Anal fissure Asthma Atrial flutter Back pain CKD (chronic kidney disease) COPD (chronic obstructive pulmonary disease) Cataract Depression Diabetes GI bleed Hypercholesteremia Hypertension Morbid obesity [place] (obstructive sleep apnea) Osteoarthritis (arthritis due to wear and tear of joints) - Surgical History Surgical History: Surgical History (Last Updated 05/11/18 @ 15:08 by Charlene Linares) History of cholecystectomy - Family History Family History: Family History (Last Updated 05/11/18 @ 15:09 by Charlene Linares) Other Family history non-contributory - Social History I have reviewed the patient's Social History: Yes - Tobacco History Second Hand Smoke Exposure: Yes Tobacco Use In Past 30 Days: No Smoking Status: Former smoker - Alcohol History How Often Do You Have a Drink Containing Alcohol: Monthly or less - Substance Use History Substance History: No History of Abuse - Travel History Recent Travel in the [place] Within the Last 8 Weeks: No Recent Travel Out of the Country Within the Last 8 Weeks: No - Immunization History Tetanus Immunization: Unsure Medications and Allergies Active Medications: Active Medications Acetaminophen (Tylenol) 650 mg PO Q4H PRN PRN Reason: Temp > 100.4 Al Hydroxide/Mg Hydroxide (Milk Of Magnesia Liq) 30 ml PO Q12H PRN PRN Reason: Mild Constipation Bisacodyl (Dulcolax Supp) 10 mg RECTAL DAILY PRN PRN Reason: SEVERE CONSITIPATION Dextrose (D50w Vial) 50 ml IV.PUSH UNSCH PRN PRN Reason: PER HYPOGLYCEMIA PROTOCOL Lactulose (Lactulose Liq) 30 ml PO DAILY PRN PRN Reason: SEVERE CONSITIPATION Ondansetron HCl (Zofran Inj) 4 mg IV.PUSH Q6H PRN PRN Reason: NAUSEA OR VOMITING Sennosides (Senokot) 17.2 mg PO Q12H PRN PRN Reason: Moderate Constipation Sodium Chloride (Ns Flush) 2 ml IV.FLUSH PRN PRN PRN Reason: FLUSH AFTER USING IV ACCESS Last Admin: 05/11/18 12:10 Dose: 2 ml Allergies Allergy/AdvReac Type Severity Reaction Status Date / Time insulin glargine Allergy Severe Verified 07/13/17 11:46 Home Medications Medication Instructions Recorded Confirmed Type aspirin [Aspir-81] 81 mg PO DAILY 05/11/18 05/11/18 History atorvastatin 80 mg PO DAILY 05/11/18 05/11/18 History insulin aspart U-100 [Novolog 10 unit SUBCUT TID 05/11/18 05/11/18 History Flexpen U-100 Insulin] insulin detemir U-100 [Levemir 100 unit SUBCUT BID 05/11/18 05/11/18 History U-100 Insulin] lisinopril 10 mg PO DAILY 05/11/18 05/11/18 History metoprolol tartrate 75 mg PO BID 05/11/18 05/11/18 History tamsulosin 0.4 mg PO BID 05/11/18 05/11/18 History venlafaxine 75 mg PO DAILY 05/11/18 05/11/18 History Exam Vital signs: Vital Signs 05/11/18 11:20 05/11/18 11:54 05/11/18 13:00 Temperature 98.0 F Pulse Rate 98 H 86 86 Respiratory Rate 18 18 Blood Pressure 140/71 142/85 H Pulse Oximetry 95 97 97 Intake & Output 05/10/18 05/11/18 05/11/18 18:59 06:59 18:59 Intake Total 1000 / 1000 Balance 1000 / 1000 Weight 160.6 kg Intake: IV 1000 / 1000 NS Inj 1,000 ML @ Wide Open IV. 1000 / 1000 SIG BOLUS ONE Rx#:[id number] Narrative: GENERAL: Well-developed, obese male patient in [facility]. SKIN: Warm and dry. No rash. HEAD: Normocephalic. Atraumatic. EYES: Pupils equal and round. No scleral icterus. No injection or drainage. ENT: No nasal bleeding or discharge. Mucous membranes pink and moist. NECK: Supple. Trachea midline. CARDIOVASCULAR: Regular rate and rhythm. S1, S2 noted. No murmur appreciated. RESPIRATORY: No accessory muscle use. Clear to auscultation. Breath sounds equal bilaterally. GASTROINTESTINAL: Abdomen soft, non-tender, nondistended. Normoactive bowel sounds x4. MUSCULOSKELETAL: No obvious deformities. Extremities without clubbing, cyanosis , or edema. NEUROLOGICAL: Awake and alert. No obvious cranial nerve deficits. Motor grossly within normal limits. 5/5 muscle strength in bilateral upper and lower extremities. Normal speech. PSYCHIATRIC: Appropriate mood and affect; insight and judgment normal. Results - Labs CBC & Chem 7: 05/11/18 12:00 05/11/18 12:00 Labs: Laboratory Results - last 24 hr 05/11/18 05/11/18 05/11/18 11:52 12:00 12:00 CBC w Diff Auto diff final WBC 8.9 RBC 4.66 Hgb 13.6 Hct 40.7 MCV 87.3 MCH 29.1 MCHC 33.3 RDW 14.2 Plt Count 222 MPV 9.0 Neut % (Auto) 83.3 H Lymph % (Auto) 13.4 [place] % (Auto) 2.1 Eos % (Auto) 0.8 Baso % (Auto) 0.4 Neut # (Auto) 7.4 Lymph # (Auto) 1.2 [place] # (Auto) 0.2 Eos # (Auto) 0.1 Baso # (Auto) 0.0 WBC Differential . Differential Comment . Puncture Site Patient Temperature O2 Saturation ABG pH ABG pCO2 ABG pO2 ABG HCO3 ABG O2 Content ABG Base Excess ABG Methemoglobin [place]aga Test Hemoglobin Carboxyhemoglobin O2 Delivery Device Inspired O2 Critical Value Sodium 130 L Potassium 5.4 H Chloride 101 Carbon Dioxide 19.1 L Anion Gap 10 BUN 41 H Creatinine 2.10 H Estimated GFR 32 L POC Glucose 593 H* Random Glucose 645 H* Calcium 8.1 L Total Bilirubin 0.9 AST 24 ALT 33 Alkaline Phosphatase 182 H Total Protein 7.3 Albumin 3.3 L Beta-Hydroxybutyric Acd 0.17 05/11/18 05/11/18 12:00 13:04 CBC w Diff WBC RBC Hgb Hct MCV MCH MCHC RDW Plt Count MPV Neut % (Auto) Lymph % (Auto) [place] % (Auto) Eos % (Auto) Baso % (Auto) Neut # (Auto) Lymph # (Auto) [place] # (Auto) Eos # (Auto) Baso # (Auto) WBC Differential Differential Comment Puncture Site Right radial Patient Temperature 98.6 O2 Saturation 93 ABG pH 7.30 L ABG pCO2 39 ABG pO2 90 ABG HCO3 19 L ABG O2 Content 17.7 ABG Base Excess -6.6 L ABG Methemoglobin 1.1 [place] Test Present Hemoglobin 13.5 Carboxyhemoglobin 0.4 O2 Delivery Device Room air Inspired O2 21 Critical Value No Sodium Potassium Chloride Carbon Dioxide Anion Gap BUN Creatinine Estimated GFR POC Glucose 499 H* Random Glucose Calcium Total Bilirubin AST ALT Alkaline Phosphatase Total Protein Albumin Beta-Hydroxybutyric Acd Caprini VTE Risk Assessment Caprini VTE Risk Assessment: Moderate/High Risk (score >= 2) Caprini Risk Assessment Model: Point Value = 1 Point Value = 2 Point Value = 3 Point Value = 5 Age 41-60 Minor surgery BMI > 25 kg/m2 Swollen legs Varicose veins or History of unexplained or recurrent spontaneous Oral contraceptives or hormone replacement Sepsis (< 1 month) Serious lung disease, including pneumonia (< 1 month) Abnormal pulmonary function Acute myocardial infarction Congestive heart failure (< 1 month) History of inflammatory bowel disease Medical patient at bed rest Age 61-74 Arthroscopic surgery Major open surgery (> 45 min) Laparoscopic surgery (> 45 min) Malignancy Confined to bed (> 72 hours) Immobilizing plaster cast Central venous access Age >= 75 History of VTE Family history of VTE Factor V Leiden Prothrombin [id number] Lupus anticoagulant Anticardiolipin antibodies Elevated serum homocysteine Heparin-induced thrombocytopenia Other congenital or acquired thrombophilia Stroke (< 1 month) Elective arthroplasty Hip, pelvis, or leg fracture Acute spinal cord injury (< 1 month) Prophylaxis Regimen: Total Risk Factor Score Risk Level Prophylaxis Regimen 0-1 Low Early ambulation 2 Moderate Order ONE of the following: *Sequential Compression Device (SCD) *Heparin 5000 units SQ BID 3-4 Higher Order ONE of the following medications: *Heparin 5000 units SQ TID *Enoxaparin/Lovenox 40 mg SQ daily (WT < 150 kg, CrCl > 30 mL/min) *Enoxaparin/Lovenox 30 mg SQ daily (WT < 150 kg, CrCl > 10-29 mL/min) *Enoxaparin/Lovenox 30 mg SQ BID (WT < 150 kg, CrCl > 30 mL/min) AND/OR *Sequential Compression Device (SCD) 5 or more Highest Order ONE of the following medications: *Heparin 5000 units SQ TID (Preferred with Epidurals) *Enoxaparin/Lovenox 40 mg SQ daily (WT < 150 kg, CrCl > 30 mL/min) *Enoxaparin/Lovenox 30 mg SQ daily (WT < 150 kg, CrCl > 10-29 mL/min) *Enoxaparin/Lovenox 30 mg SQ BID (WT < 150 kg, CrCl > 30 mL/min) AND *Sequential Compression Device (SCD) Assessment and Plan - Assessment (1) Hyperglycemia Code(s): R73.9 - Hyperglycemia, unspecified Status: Acute - Plan This is a 68-year-old male patient with: Hyperglycemia Type 2 diabetes mellitus, chronic Noncompliance -Patient presented with glucose greater than 500. Not in DKA. Anion gap closed. -Uses insulin at home, will start on ACCU check achs, sliding scale, cover as needed. Add Levemir 80 units sq BID per home medication. Monitor blood sugar trends. Monitor for hypoglycemia. -Add Hemoglobin a1c to labs. -Diabetic diet. -CBC reviewed and essentially unremarkable. Acute kidney injury -Denies any history of CKD. -Creatinine 2 on presentation. Continue hydration IV. Monitor BMP. -Avoid nephrotoxins. -If no improvement in am, will obtain US. Hyperkalemia: K 5.2. Was given IV insulin, this should correct. Continue to monitor. Monitor for arrhythmias. Hyperlipidemia, chronic: Continue home statin. Hypertension, chronic: Continue home medications. Monitor blood pressure trends. DVT Prophylaxis: SCDs. Heparin.
[2018-05-11] MEDS: Insulin NovoLOG Aspart Correctional Sugar Inj SQ SCH ×2 (17:11→20:17)
[2018-05-11] MEDS: Sod Chloride 0.9% Inj 1,000 ML IV.CONT SCH (17:58)
[2018-05-11] MEDS: Heparin - SQ 10,000 UNITS/ML Vial SQ SCH (20:08)
[2018-05-11] MEDS: Metoprolol Tartrate 50 MG Tablet PO SCH (20:08)
[2018-05-11] MEDS ORDERED: Insulin Detemir Inj 1,000 UNIT/10 ML Vial SQ SCH (21:00)
[2018-05-12 05:53] LABS: Baso % (Auto) 0.2 % (0.0-2.0); Eos % (Auto) 0.3 % (0.0-4.0); Hematocrit 40.7 % (39.0-51.0); Hemoglobin 13.4 gm/dL (13.0-17.0); Lymph # (Auto) 2.2 th/mm3 (1.0-4.8); Lymph % (Auto) 20.8 % (9.0-44.0); Mean Corpuscular HGB Conc 32.9 % (32.0-36.0); Mean Corpuscular Hemoglobin 29.3 pg (27.0-34.0); Mean Platelet Volume 8.1 fL (7.0-11.0); Mono # (Auto) 0.5 th/mm3 (0.0-0.9); Mono % (Auto) 4.6 % (0.0-8.0); Neut # (Auto) 7.8 th/mm3 (1.8-7.7); Neut % (Auto) 74.1 % (16.0-70.0); Platelet Count 200 th/mm3 (150-450); Red Blood Count 4.57 mil/mm3 (4.50-5.90); Red Cell Distribution Width 13.5 % (11.6-17.2); White Blood Count 10.5 th/mm3 (4.0-11.0)
[2018-05-12 06:22] LABS: Calcium 8.4 mg/dL (8.5-10.1); Carbon Dioxide 21.4 meq/L (21.0-32.0)
[2018-05-12] MEDS: Sod Chloride 0.9% Inj 1,000 ML IV.CONT SCH ×2 (06:27→16:06)
[2018-05-12] MEDS: Insulin NovoLOG Aspart Correctional Sugar Inj SQ SCH ×5 (08:13→16:43)
--- NOTE | 2018-05-12 08:14 | P.PNIM ---
Subjective Interval history: Follow up hyperglycemia. Patient and seen examined, patient lying in bed comfortably in nad. Improvement of blood sugars overnight, although this am he had two glasses of orange juice and his blood sugar is in the 400's. Patient educated on importance of diabetic diet, he has a good understanding of a diabetic diet and how to manage, he admits to noncompliance. Will attempt to dc home if blood sugars come down around lunch time. Patient denies any other complaints. Physical Exam Vital signs: Vital Signs 05/11/18 11:20 05/11/18 11:54 05/11/18 13:00 Temperature 98.0 F Pulse Rate 98 H 86 86 Respiratory Rate 18 18 Blood Pressure 140/71 142/85 H Pulse Oximetry 95 97 97 05/11/18 14:10 05/11/18 16:00 05/11/18 20:00 Temperature 98.4 F 96.6 F L Pulse Rate 78 77 84 Respiratory Rate 18 20 20 Blood Pressure 150/81 H 156/94 H 145/82 H Pulse Oximetry 96 97 93 L 05/12/18 00:00 Temperature 97.3 F L Pulse Rate 79 Respiratory Rate 20 Blood Pressure 130/80 Pulse Oximetry 97 Intake & Output 05/11/18 05/12/18 05/12/18 18:59 06:59 18:59 Intake Total 1480 / 1480 480 / 480 Balance 1480 / 1480 480 / 480 Weight 160.6 kg 157.1 kg Intake: IV 1000 / 1000 NS Inj 1,000 ML @ Wide Open IV. 1000 / 1000 SIG BOLUS ONE Rx#:[id number] Oral 480 / 480 480 / 480 Other: # Voids 2 3 Date of Last Bowel Movement 05/11/18 # Bowel Movements 0 Weight On Admission 160.6 kg Narrative: GENERAL: Well-developed, obese male patient in [facility]. SKIN: Warm and dry. No rash. HEAD: Normocephalic. Atraumatic. EYES: Pupils equal and round. No scleral icterus. No injection or drainage. ENT: No nasal bleeding or discharge. Mucous membranes pink and moist. NECK: Supple. Trachea midline. CARDIOVASCULAR: Regular rate and rhythm. S1, S2 noted. No murmur appreciated. RESPIRATORY: No accessory muscle use. Clear to auscultation. Breath sounds equal bilaterally. GASTROINTESTINAL: Abdomen soft, non-tender, nondistended. Normoactive bowel sounds x4. MUSCULOSKELETAL: No obvious deformities. Extremities without clubbing, cyanosis , or edema. NEUROLOGICAL: Awake and alert. No obvious cranial nerve deficits. Motor grossly within normal limits. 5/5 muscle strength in bilateral upper and lower extremities. Normal speech. PSYCHIATRIC: Appropriate mood and affect; insight and judgment normal. Results - Labs CBC & Chem 7: 05/12/18 05:25 05/12/18 05:25 Laboratory Results - last 24 hr 05/11/18 05/11/18 05/11/18 11:52 12:00 12:00 CBC w Diff Auto diff final WBC 8.9 RBC 4.66 Hgb 13.6 Hct 40.7 MCV 87.3 MCH 29.1 MCHC 33.3 RDW 14.2 Plt Count 222 MPV 9.0 Neut % (Auto) 83.3 H Lymph % (Auto) 13.4 [place] % (Auto) 2.1 Eos % (Auto) 0.8 Baso % (Auto) 0.4 Neut # (Auto) 7.4 Lymph # (Auto) 1.2 [place] # (Auto) 0.2 Eos # (Auto) 0.1 Baso # (Auto) 0.0 WBC Differential . Differential Comment . Puncture Site Patient Temperature O2 Saturation ABG pH ABG pCO2 ABG pO2 ABG HCO3 ABG O2 Content ABG Base Excess ABG Methemoglobin [place]aga Test Hemoglobin Carboxyhemoglobin O2 Delivery Device Inspired O2 Critical Value Sodium 130 L Potassium 5.4 H Chloride 101 Carbon Dioxide 19.1 L Anion Gap 10 BUN 41 H Creatinine 2.10 H Estimated GFR 32 L POC Glucose 593 H* Random Glucose 645 H* Calcium 8.1 L Total Bilirubin 0.9 AST 24 ALT 33 Alkaline Phosphatase 182 H Total Protein 7.3 Albumin 3.3 L Beta-Hydroxybutyric Acd 0.17 05/11/18 05/11/18 05/11/18 12:00 13:04 14:00 CBC w Diff WBC RBC Hgb Hct MCV MCH MCHC RDW Plt Count MPV Neut % (Auto) Lymph % (Auto) [place] % (Auto) Eos % (Auto) Baso % (Auto) Neut # (Auto) Lymph # (Auto) [place] # (Auto) Eos # (Auto) Baso # (Auto) WBC Differential Differential Comment Puncture Site Right radial Patient Temperature 98.6 O2 Saturation 93 ABG pH 7.30 L ABG pCO2 39 ABG pO2 90 ABG HCO3 19 L ABG O2 Content 17.7 ABG Base Excess -6.6 L ABG Methemoglobin 1.1 [place]aga Test Present Hemoglobin 13.5 Carboxyhemoglobin 0.4 O2 Delivery Device Room air Inspired O2 21 Critical Value No Sodium Potassium Chloride Carbon Dioxide Anion Gap BUN Creatinine Estimated GFR POC Glucose 499 H* 452 H* Random Glucose Calcium Total Bilirubin AST ALT Alkaline Phosphatase Total Protein Albumin Beta-Hydroxybutyric Acd 05/11/18 05/11/18 05/12/18 16:49 20:12 05:25 CBC w Diff Auto diff final WBC 10.5 RBC 4.57 Hgb 13.4 Hct 40.7 MCV 89.0 MCH 29.3 MCHC 32.9 RDW 13.5 Plt Count 200 MPV 8.1 Neut % (Auto) 74.1 H Lymph % (Auto) 20.8 [place] % (Auto) 4.6 Eos % (Auto) 0.3 Baso % (Auto) 0.2 Neut # (Auto) 7.8 H Lymph # (Auto) 2.2 [place] # (Auto) 0.5 Eos # (Auto) 0.0 Baso # (Auto) 0.0 WBC Differential . Differential Comment . Puncture Site Patient Temperature O2 Saturation ABG pH ABG pCO2 ABG pO2 ABG HCO3 ABG O2 Content ABG Base Excess ABG Methemoglobin [place]aga Test Hemoglobin Carboxyhemoglobin O2 Delivery Device Inspired O2 Critical Value Sodium Potassium Chloride Carbon Dioxide Anion Gap BUN Creatinine Estimated GFR POC Glucose 448 H 372 H Random Glucose Calcium Total Bilirubin AST ALT Alkaline Phosphatase Total Protein Albumin Beta-Hydroxybutyric Acd 05/12/18 05:25 CBC w Diff WBC RBC Hgb Hct MCV MCH MCHC RDW Plt Count MPV Neut % (Auto) Lymph % (Auto) [place] % (Auto) Eos % (Auto) Baso % (Auto) Neut # (Auto) Lymph # (Auto) [place] # (Auto) Eos # (Auto) Baso # (Auto) WBC Differential Differential Comment Puncture Site Patient Temperature O2 Saturation ABG pH ABG pCO2 ABG pO2 ABG HCO3 ABG O2 Content ABG Base Excess ABG Methemoglobin [place]aga Test Hemoglobin Carboxyhemoglobin O2 Delivery Device Inspired O2 Critical Value Sodium 134 L Potassium 5.0 Chloride 104 Carbon Dioxide 21.4 Anion Gap 9 BUN 40 H Creatinine 1.80 H Estimated GFR 38 L POC Glucose Random Glucose 424 H D Calcium 8.4 L Total Bilirubin AST ALT Alkaline Phosphatase Total Protein Albumin Beta-Hydroxybutyric Acd Assessment and Plan - Assessment (1) Hyperglycemia Code(s): R73.9 - Hyperglycemia, unspecified Status: Acute - Plan This is a 68-year-old male patient with: Hyperglycemia Type 2 diabetes mellitus, chronic Noncompliance -Patient presented with glucose greater than 500. Not in DKA. Anion gap closed. Improving overnight. -Uses insulin at home, will start on ACCU check achs, sliding scale, cover as needed. Increase from Levemir 80 units sq BID to 90 units BID. Monitor blood sugar trends. Monitor for hypoglycemia. -Slightly improving, compliance with diet has been stressed to patient. -Add Hemoglobin a1c to labs. Pending. -Diabetic diet. -CBC reviewed and essentially unremarkable. Acute on chronic kidney disease -Denies any history of CKD. He likely has some CKD secondary to severely uncontrolled DM. -Creatinine 2 on presentation. Continued on hydration IV. Slightly improved overnight. -Avoid nephrotoxins. Hyperkalemia: K 5.2 on presentation, slowly improving. Was given IV insulin. Continue to monitor. Monitor for arrhythmias. None overnight. Hyperlipidemia, chronic: Continue home statin. Hypertension, chronic: Continue home medications. Monitor blood pressure trends. DVT Prophylaxis: SCDs. Heparin. 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 Diabetic diet and compliance has been stressed. Activity as tolerated. RX as written on dc plan. Return to ED if continued elevation in blood sugar. Patient is stable at this time and agreeable to the plan.
[2018-05-12] MEDS ORDERED: Lisinopril 10 MG Tablet PO SCH (09:00)
[2018-05-12] MEDS ORDERED: Venlafaxine XR 75 MG Capsule PO SCH (09:00)
[2018-05-12] MEDS: Insulin Detemir Inj 1,000 UNIT/10 ML Vial SQ SCH ×2 (09:15→09:16)
[2018-05-12] MEDS: Metoprolol Tartrate 50 MG Tablet PO SCH (09:21)
[2018-05-12] MEDS: Heparin - SQ 10,000 UNITS/ML Vial SQ SCH (09:21)
[2018-05-12] MEDS ORDERED: Dextrose 50% in Water 50 ML Vial IV.PUSH PRN (11:49)
[2018-05-12 16:37] VITALS: BP 144/77; PULSE 79; RESP 20; TEMP 98; O2SAT 96
[2018-05-12 16:56] LABS: Hemoglobin A1c 15.2 % (4.3-6.0)
--- NOTE | 2018-05-12 21:30 | ECG ---
Date Performed: 05/11/2018 Time Performed: 12:18:04 PTAGE: 68 years EKG: Sinus rhythm LOW QRS VOLTAGE IN PRECORDIAL LEADS FIRST DEGREE AV BLOCK Compared to previous tracing, UT interval is slightly longer, otherwise no significant change BORDERLINE ECG PREVIOUS TRACING : 07/13/2017 10.54 DOCTOR: Adriano Buckner Interpretating Date/Time 05/12/2018 21:28:31
== END 2018-05-12 17:52 | disposition home or self-care (01) ==
LOC: PHED 11:05 → PHEDA 11:05 → PH3 14:41
PROVIDERS: ADMIT Internal Medicine; ATTEND Internal Medicine